=== PATIENT | female | born 1960 | race African-American/Black ===

== ENCOUNTER 2020-11-14 17:24 | Inpatient (IN) | payer OTHER ==
[2020-11-14] MEDS ORDERED: ACETAMINOPHEN 1000 MG/100 ML VIAL (NON FORMULARY) IVPB ONE (18:07)
[2020-11-14] MEDS ORDERED: SODIUM CHLORIDE 1,000 ML IV STA ×2 (18:07→20:36)
[2020-11-14] MEDS ORDERED: ACETAMINOPHEN INJECTION 100 ML IVPB ONE (18:19)
[2020-11-14 19:13] LABS: BASO % 0.3 % (0-2.0); EOS % 0.6 % (0-4.5); HEMATOCRIT 40.1 % (32.4-45.2); HEMOGLOBIN 13.2 GM/dL (10.7-15.3); MCH 26.7 pg (25.7-33.7); MCHC 32.9 g/dl (32.0-36.0); MEAN CELL VOLUME 81.3 fl (80-96); MEAN PLT VOLUME 10.5 fl (7.5-11.1); NEUT % 96.1 % (42.8-82.8); PLATELET COUNT 232 K/MM3 (134-434); RBC 4.93 M/mm3 (3.60-5.2); RDW 14.7 % (11.6-15.6); WHITE BLOOD COUNT 9.4 K/mm3 (4.0-10.0)
[2020-11-14 19:17] LABS: EPI CELLS 14 /uL (0-25.1); HYALINE CASTS 1 /uL (0-3.1); URINE APPEARANCE CLEAR; URINE BACTERIA 104 /uL (0-1359); URINE BILIRUBIN NEGATIVE (NEGATIVE); URINE COLOR DK YELLOW; URINE GLUCOSE (UA) NEGATIVE (NEGATIVE); URINE KETONE TRACE (NEGATIVE); URINE LEUK ESTERASE NEGATIVE (NEGATIVE); URINE NITRITE NEGATIVE (NEGATIVE); URINE PROTEIN 2+ (NEGATIVE); URINE RBC 32 /uL (0-23.9); URINE WBC 6 /uL (0-25.8)
[2020-11-14 19:19] LABS: VENOUS BASE EXCESS 2.2 mmol/L (-2-2); VENOUS O2 SATURATION 58.9 % (70-80); VENOUS PCO2 42.8 mmHg (38-52); VENOUS PH 7.418 (7.310-7.410)
[2020-11-14 19:24] LABS: INR 1.02 (0.83-1.09); PROTHROMBIN TIME (PATIENT) 12.5 SEC (9.7-13.0)
[2020-11-14 19:27] LABS: ACTIVATED PTT 24.5 SECONDS (25.2-36.5)
[2020-11-14 19:32] LABS: CHLORIDE 102 mmol/L (98-107); SODIUM 138 mmol/L (136-145)
[2020-11-14 19:36] LABS: ALBUMIN 3.9 g/dl (3.4-5.0); ANION GAP 9 MMOL/L (8-16); CALCIUM 9.5 mg/dL (8.5-10.1); CO2 27 mmol/L (21-32)
[2020-11-14 19:37] LABS: BLOOD UREA NITROGEN 25.3 mg/dL (7-18); GLUCOSE,RANDOM 194 mg/dL (74-106)
[2020-11-14 19:41] LABS: BILIRUBIN,TOTAL 0.8 mg/dL (0.2-1); CREATININE 1.2 mg/dL (0.55-1.3); SGOT/AST 59 U/L (15-37); SGPT/ALT 32 U/L (13-61); TOT PROT 7.9 g/dl (6.4-8.2)
[2020-11-14 19:43] LABS: ALK PHOS 101 U/L (45-117)
[2020-11-14 19:50] LABS: LACTIC ACID 2.8 mmol/L (0.4-2.0)
[2020-11-14] MEDS ORDERED: PIPERACILLIN/TAZOB 4.5 GM 4.5 GM in DEXTROSE 5%-WATER 100 ML IVPB ONE (20:08)
[2020-11-14 20:26] LABS: ANISOCYTOSIS 1+; MACROCYTOSIS 0; PLATELET ESTIMATE NORMAL
[2020-11-14] MEDS ORDERED: VANCOMYCIN 1 GM in D5W (PRE-DOCKED) 1,000 MG/250 ML IVPB ONE (22:18)
[2020-11-14] MEDS ORDERED: VANCOMYCIN 1 GRAM (PRE-DOCKED) 1,000 MG/250 ML BAG IVPB ONE (22:48)
[2020-11-14] MEDS ORDERED: PIPERACILLIN/TAZOB 4.5 GM 4.5 GM/100 ML BAG IVPB ONE (22:48)
[2020-11-15] MEDS ORDERED: ACETAMINOPHEN 325 MG TABLET (FP) ONE (02:40)
[2020-11-15] MEDS ORDERED: ACETAMINOPHEN 325 MG TABLET (FP) PO ONE (02:45)
[2020-11-15 04:20] VITALS: BMI 34.3
[2020-11-15] MEDS: INSULIN SLIDING SCALE (NOVOLOG) 1 VIAL SQ SCH ×4 (06:49→21:23)
[2020-11-15 07:36] LABS: HEMOGLOBIN 12.2 GM/dL (10.7-15.3); LYMPH % 12.8 % (8-40); MCH 26.8 pg (25.7-33.7); MCHC 32.9 g/dl (32.0-36.0); MEAN CELL VOLUME 81.4 fl (80-96); MEAN PLT VOLUME 9.4 fl (7.5-11.1); MONO % 3.2 % (3.8-10.2); PLATELET COUNT 176 K/MM3 (134-434); RBC 4.55 M/mm3 (3.60-5.2); RDW 14.7 % (11.6-15.6); WHITE BLOOD COUNT 4.7 K/mm3 (4.0-10.0)
[2020-11-15 07:50] LABS: INR 1.13 (0.83-1.09); PROTHROMBIN TIME (PATIENT) 13.8 SEC (9.7-13.0)
[2020-11-15 07:53] LABS: ALBUMIN 3.1 g/dl (3.4-5.0); CALCIUM 8.5 mg/dL (8.5-10.1); MAGNESIUM 1.8 mg/dL (1.8-2.4)
[2020-11-15 07:56] LABS: CREATININE 0.8 mg/dL (0.55-1.3); PHOSPHOROUS 2.7 mg/dL (2.5-4.9)
[2020-11-15 07:57] LABS: BILIRUBIN,TOTAL 1.2 mg/dL (0.2-1); TOT PROT 6.7 g/dl (6.4-8.2)
[2020-11-15] MEDS ORDERED: PT OWN MED DRAWER 7, Y5N ONE ×2 (10:14→21:17)
[2020-11-15] MEDS: EZETIMIBE 10 MG TABLET (FP) PO SCH (10:19)
[2020-11-15] MEDS: PANTOPRAZOLE 40 MG TABLET PO SCH (10:19)
[2020-11-15] MEDS: HYDROCHLOROTHIAZIDE 25 MG TABLET (FP) PO SCH (10:20)
[2020-11-15] MEDS: DOCUSATE SODIUM 100 MG CAPSULE (FP) PO SCH ×2 (10:20→21:22)
[2020-11-15] MEDS: ENOXAPARIN NA (PORCINE) 40 MG/0.4 ML DISP.SYRIN SQ SCH (10:20)
[2020-11-15] MEDS ORDERED: POTASSIUM CHLORIDE TABS 20 MEQ TABLET.ER (FP) PO ONE (13:30)
[2020-11-15] MEDS ORDERED: amLODIPine BESYLATE 5 MG TABLET (FP) PO SCH (19:45)
[2020-11-15] MEDS ORDERED: INSULIN (NOVOLOG) ASPART 100 UNITS/ML 10ML VIAL ONE (21:18)
[2020-11-15] MEDS: SENNOSIDES 8.6MG TABLET (FP) PO SCH (21:22)
[2020-11-15] MEDS ORDERED: ROSUVASTATIN CA 40 MG TABLET PO SCH (22:00)
[2020-11-16] MEDS ORDERED: ACETAMINOPHEN 325 MG TABLET (FP) PO ONE (01:15)
[2020-11-16] MEDS: INSULIN SLIDING SCALE (NOVOLOG) 1 VIAL SQ SCH ×4 (06:06→21:05)
[2020-11-16 08:00] LABS: BLOOD UREA NITROGEN 14.2 mg/dL (7-18); CALCIUM 9.4 mg/dL (8.5-10.1)
[2020-11-16 08:03] LABS: CREATININE 0.8 mg/dL (0.55-1.3)
[2020-11-16] MEDS ORDERED: PT OWN MED DRAWER 7, Y5N ONE (09:27)
[2020-11-16] MEDS: ENOXAPARIN NA (PORCINE) 40 MG/0.4 ML DISP.SYRIN SQ SCH (09:29)
[2020-11-16] MEDS: PANTOPRAZOLE 40 MG TABLET PO SCH (09:30)
[2020-11-16] MEDS: EZETIMIBE 10 MG TABLET (FP) PO SCH (09:30)
[2020-11-16] MEDS: DOCUSATE SODIUM 100 MG CAPSULE (FP) PO SCH ×2 (09:30→21:05)
[2020-11-16] MEDS: HYDROCHLOROTHIAZIDE 25 MG TABLET (FP) PO SCH (09:30)
[2020-11-16] MEDS ORDERED: VANCOMYCIN 1 GM in D5W (PRE-DOCKED) 1,000 MG/250 ML IVPB ONE (10:30)
[2020-11-16] MEDS: IBUPROFEN 200 MG TABLET PO PRN (16:48)
[2020-11-16] MEDS ORDERED: INSULIN (NOVOLOG) ASPART 100 UNITS/ML 10ML VIAL ONE (20:55)
[2020-11-16] MEDS: ROSUVASTATIN CA 20 MG TABLET (FP) PO SCH (21:04)
[2020-11-16] MEDS: SENNOSIDES 8.6MG TABLET (FP) PO SCH (21:05)
[2020-11-17] MEDS: INSULIN SLIDING SCALE (NOVOLOG) 1 VIAL SQ SCH ×4 (06:15→21:41)
[2020-11-17] MEDS: ENOXAPARIN NA (PORCINE) 40 MG/0.4 ML DISP.SYRIN SQ SCH (09:48)
[2020-11-17] MEDS: HYDROCHLOROTHIAZIDE 25 MG TABLET (FP) PO SCH (09:49)
[2020-11-17] MEDS: PANTOPRAZOLE 40 MG TABLET PO SCH (09:49)
[2020-11-17] MEDS: DOCUSATE SODIUM 100 MG CAPSULE (FP) PO SCH ×2 (09:49→21:44)
[2020-11-17] MEDS ORDERED: PT OWN MED DRAWER 7, Y5N ONE (09:53)
[2020-11-17] MEDS: EZETIMIBE 10 MG TABLET (FP) PO SCH (09:55)
[2020-11-17] MEDS: amLODIPine BESYLATE 5 MG TABLET (FP) PO SCH (14:00)
[2020-11-17] MEDS: INSULIN (LEVEMIR) 100 UNITS/ML UNITS SQ SCH (21:43)
[2020-11-17] MEDS: ROSUVASTATIN CA 20 MG TABLET (FP) PO SCH (21:44)
[2020-11-17] MEDS: SENNOSIDES 8.6MG TABLET (FP) PO SCH (21:44)
[2020-11-18] MEDS: INSULIN SLIDING SCALE (NOVOLOG) 1 VIAL SQ SCH ×4 (06:19→21:14)
[2020-11-18] MEDS ORDERED: INSULIN (LEVEMIR) 100 UNITS/ML UNITS SQ ONE (06:48)
[2020-11-18] MEDS ORDERED: INSULIN (NOVOLOG) ASPART 100 UNITS/ML 10ML VIAL ONE ×3 (06:48→16:32)
[2020-11-18] MEDS ORDERED: PT OWN MED DRAWER 7, Y5N ONE (08:41)
[2020-11-18] MEDS: EZETIMIBE 10 MG TABLET (FP) PO SCH (09:03)
[2020-11-18] MEDS: ENOXAPARIN NA (PORCINE) 40 MG/0.4 ML DISP.SYRIN SQ SCH (09:03)
[2020-11-18] MEDS: DOCUSATE SODIUM 100 MG CAPSULE (FP) PO SCH ×2 (09:03→21:13)
[2020-11-18] MEDS: PANTOPRAZOLE 40 MG TABLET PO SCH (09:03)
[2020-11-18] MEDS: amLODIPine BESYLATE 5 MG TABLET (FP) PO SCH (09:04)
[2020-11-18] MEDS: HYDROCHLOROTHIAZIDE 25 MG TABLET (FP) PO SCH (09:04)
[2020-11-18] MEDS: MELATONIN 5 MG TABLETS PO PRN (21:14)
[2020-11-18] MEDS: SENNOSIDES 8.6MG TABLET (FP) PO SCH (21:14)
[2020-11-18] MEDS: ROSUVASTATIN CA 20 MG TABLET (FP) PO SCH (21:14)
[2020-11-18] MEDS: INSULIN (LEVEMIR) 100 UNITS/ML UNITS SQ SCH (21:15)
[2020-11-19] MEDS: INSULIN SLIDING SCALE (NOVOLOG) 1 VIAL SQ SCH ×4 (06:02→22:18)
[2020-11-19] MEDS ORDERED: INSULIN (LEVEMIR) 100 UNITS/ML UNITS SQ ONE (06:22)
[2020-11-19] MEDS ORDERED: INSULIN (NOVOLOG) ASPART 100 UNITS/ML 10ML VIAL ONE ×2 (06:22→09:12)
[2020-11-19] MEDS: amLODIPine BESYLATE 5 MG TABLET (FP) PO SCH (09:38)
[2020-11-19] MEDS: HYDROCHLOROTHIAZIDE 25 MG TABLET (FP) PO SCH (09:38)
[2020-11-19] MEDS: PANTOPRAZOLE 40 MG TABLET PO SCH (09:38)
[2020-11-19] MEDS: DOCUSATE SODIUM 100 MG CAPSULE (FP) PO SCH ×2 (09:38→22:01)
[2020-11-19] MEDS: EZETIMIBE 10 MG TABLET (FP) PO SCH (09:38)
[2020-11-19] MEDS: ENOXAPARIN NA (PORCINE) 40 MG/0.4 ML DISP.SYRIN SQ SCH (09:39)
[2020-11-19] MEDS ORDERED: INSULIN (LEVEMIR) 100 UNITS/ML UNITS SQ SCH (11:26)
[2020-11-19] MEDS: SENNOSIDES 8.6MG TABLET (FP) PO SCH (22:01)
[2020-11-19] MEDS: ROSUVASTATIN CA 20 MG TABLET (FP) PO SCH (22:01)
[2020-11-19] MEDS: IBUPROFEN 200 MG TABLET PO PRN (22:08)
[2020-11-20] MEDS: INSULIN SLIDING SCALE (NOVOLOG) 1 VIAL SQ SCH ×4 (06:44→21:56)
[2020-11-20] MEDS: HYDROCHLOROTHIAZIDE 25 MG TABLET (FP) PO SCH (09:41)
[2020-11-20] MEDS: amLODIPine BESYLATE 5 MG TABLET (FP) PO SCH (09:42)
[2020-11-20] MEDS: ENOXAPARIN NA (PORCINE) 40 MG/0.4 ML DISP.SYRIN SQ SCH (09:43)
[2020-11-20] MEDS: DOCUSATE SODIUM 100 MG CAPSULE (FP) PO SCH ×2 (09:43→21:57)
[2020-11-20] MEDS: PANTOPRAZOLE 40 MG TABLET PO SCH (09:43)
[2020-11-20] MEDS: EZETIMIBE 10 MG TABLET (FP) PO SCH (09:43)
[2020-11-20] MEDS ORDERED: INSULIN (NOVOLOG) ASPART 100 UNITS/ML 10ML VIAL ONE (11:32)
[2020-11-20] MEDS: INSULIN (LEVEMIR) 100 UNITS/ML UNITS SQ SCH (21:56)
[2020-11-20] MEDS: SENNOSIDES 8.6MG TABLET (FP) PO SCH (21:57)
[2020-11-20] MEDS: ROSUVASTATIN CA 20 MG TABLET (FP) PO SCH (21:57)
[2020-11-20] MEDS: ACETAMINOPHEN 325 MG TABLET (FP) PO PRN (22:24)
[2020-11-20] MEDS: MELATONIN 5 MG TABLETS PO PRN (22:24)
[2020-11-21] MEDS: INSULIN SLIDING SCALE (NOVOLOG) 1 VIAL SQ SCH ×4 (06:08→21:24)
[2020-11-21 07:56] LABS: HEMATOCRIT 36.4 % (32.4-45.2); HEMOGLOBIN 12.4 GM/dL (10.7-15.3); MCH 27.1 pg (25.7-33.7); MEAN CELL VOLUME 79.9 fl (80-96); MEAN PLT VOLUME 9.7 fl (7.5-11.1); PLATELET COUNT 259 K/MM3 (134-434); RBC 4.56 M/mm3 (3.60-5.2); RDW 15.1 % (11.6-15.6); WHITE BLOOD COUNT 6.9 K/mm3 (4.0-10.0)
[2020-11-21 08:51] LABS: BILIRUBIN,TOTAL 0.5 mg/dL (0.2-1)
[2020-11-21 08:52] LABS: BLOOD UREA NITROGEN 13.7 mg/dL (7-18)
[2020-11-21 08:53] LABS: ALBUMIN 3.6 g/dl (3.4-5.0); CALCIUM 8.7 mg/dL (8.5-10.1)
[2020-11-21 08:54] LABS: CREATININE 0.8 mg/dL (0.55-1.3)
[2020-11-21] MEDS: PANTOPRAZOLE 40 MG TABLET PO SCH (09:27)
[2020-11-21] MEDS: ENOXAPARIN NA (PORCINE) 40 MG/0.4 ML DISP.SYRIN SQ SCH (09:27)
[2020-11-21] MEDS: DOCUSATE SODIUM 100 MG CAPSULE (FP) PO SCH ×2 (09:27→21:25)
[2020-11-21] MEDS: HYDROCHLOROTHIAZIDE 25 MG TABLET (FP) PO SCH (09:27)
[2020-11-21] MEDS: amLODIPine BESYLATE 5 MG TABLET (FP) PO SCH (09:27)
[2020-11-21] MEDS: EZETIMIBE 10 MG TABLET (FP) PO SCH (11:02)
[2020-11-21] MEDS ORDERED: INSULIN (NOVOLOG) ASPART 100 UNITS/ML 10ML VIAL ONE ×2 (11:15→20:50)
[2020-11-21] MEDS: SENNOSIDES 8.6MG TABLET (FP) PO SCH (21:25)
[2020-11-21] MEDS: ROSUVASTATIN CA 20 MG TABLET (FP) PO SCH (21:25)
[2020-11-21] MEDS: INSULIN (LEVEMIR) 100 UNITS/ML UNITS SQ SCH (21:25)
[2020-11-22] MEDS: INSULIN SLIDING SCALE (NOVOLOG) 1 VIAL SQ SCH ×4 (06:00→21:14)
[2020-11-22] MEDS ORDERED: DEXTROSE 5%-NORMAL SALINE 1,000 ML IV SCH (08:00)
[2020-11-22] MEDS: HYDROCHLOROTHIAZIDE 25 MG TABLET (FP) PO SCH (09:30)
[2020-11-22] MEDS: ACETAMINOPHEN 325 MG TABLET (FP) PO PRN ×2 (09:31→22:18)
[2020-11-22] MEDS: PANTOPRAZOLE 40 MG TABLET PO SCH (09:32)
[2020-11-22] MEDS: DOCUSATE SODIUM 100 MG CAPSULE (FP) PO SCH ×2 (09:32→21:08)
[2020-11-22] MEDS: amLODIPine BESYLATE 10 MG TABLET (FP) PO SCH (09:32)
[2020-11-22] MEDS ORDERED: INSULIN (LEVEMIR) 100 UNITS/ML UNITS SQ SCH (11:56)
[2020-11-22] MEDS: Insulin (LOG) Aspart 100 UNITS/ML VIAL SQ SCH ×2 (12:38→13:00)
[2020-11-22] MEDS: EZETIMIBE 10 MG TABLET (FP) PO SCH (14:24)
[2020-11-22] MEDS ORDERED: INSULIN (NOVOLOG) ASPART 100 UNITS/ML 10ML VIAL SQ SCH (16:30)
[2020-11-22] MEDS ORDERED: Insulin (LOG) Aspart 100 UNITS/ML VIAL SQ SCH (16:30)
[2020-11-22] MEDS: ROSUVASTATIN CA 20 MG TABLET (FP) PO SCH (21:08)
[2020-11-22] MEDS: SENNOSIDES 8.6MG TABLET (FP) PO SCH (21:09)
[2020-11-23] MEDS: INSULIN SLIDING SCALE (NOVOLOG) 1 VIAL SQ SCH ×4 (06:20→21:08)
[2020-11-23] MEDS ORDERED: DEXTROSE 5%-NORMAL SALINE 1,000 ML IV SCH (08:00)
[2020-11-23] MEDS ORDERED: HEPARIN NA (PORCINE) 5,000 UNITS/ML 1ML VIAL ONE (08:08)
[2020-11-23] MEDS ORDERED: LIDOCAINE HCL 1%, 10 MG/ML (20ML VIAL) ONE (08:08)
[2020-11-23] MEDS ORDERED: MIDAZOLAM HCL 2 MG/2 ML SINGLE DOSE VIAL ONE ×2 (09:22)
[2020-11-23] MEDS ORDERED: ceFAZolin SODIUM 1 GM VIAL IVPB ONE (09:30)
[2020-11-23] MEDS: DOCUSATE SODIUM 100 MG CAPSULE (FP) PO SCH ×2 (09:36→21:08)
[2020-11-23] MEDS ORDERED: ceFAZolin SODIUM 1 GM VIAL ONE (09:40)
[2020-11-23] MEDS ORDERED: METOPROLOL TARTRATE 5 MG/5 ML VIAL ONE (09:40)
[2020-11-23] MEDS ORDERED: IOVERSOL 320 MG/ML ML IV ONE (10:10)
[2020-11-23] MEDS ORDERED: LIDOCAINE HCL 1%, 10 MG/ML (20ML VIAL) SQ ONE (10:10)
[2020-11-23] MEDS ORDERED: ONDANSETRON 4 MG/2 ML VIAL IVPUSH PRN ×2 (10:25→10:58)
[2020-11-23] MEDS ORDERED: LACTATED RINGERS SOLUTION 1,000 ML IV SCH (10:30)
[2020-11-23] MEDS ORDERED: IBUPROFEN 200 MG TABLET PO PRN (10:58)
[2020-11-23] MEDS ORDERED: MELATONIN 5 MG TABLETS PO PRN (10:58)
[2020-11-23] MEDS ORDERED: ACETAMINOPHEN 325 MG TABLET (FP) PO PRN (10:58)
[2020-11-23] MEDS: amLODIPine BESYLATE 10 MG TABLET (FP) PO SCH (12:19)
[2020-11-23] MEDS: PANTOPRAZOLE 40 MG TABLET PO SCH (12:19)
[2020-11-23] MEDS: HYDROCHLOROTHIAZIDE 25 MG TABLET (FP) PO SCH (12:19)
[2020-11-23] MEDS: EZETIMIBE 10 MG TABLET (FP) PO SCH (12:19)
[2020-11-23] MEDS: LACTATED RINGERS SOLUTION 1,000 ML IV SCH (17:19)
[2020-11-23] MEDS: DEXTROSE 5%-NORMAL SALINE 1,000 ML IV SCH (17:19)
[2020-11-23] MEDS ORDERED: ROSUVASTATIN CA 20 MG TABLET (FP) PO SCH (22:00)
[2020-11-23] MEDS ORDERED: SENNOSIDES 8.6MG TABLET (FP) PO SCH (22:00)
[2020-11-23] MEDS ORDERED: INSULIN (LEVEMIR) 100 UNITS/ML UNITS SQ SCH (22:00)
[2020-11-24] MEDS: INSULIN SLIDING SCALE (NOVOLOG) 1 VIAL SQ SCH ×3 (06:34→11:59)
[2020-11-24] MEDS ORDERED: INSULIN (NOVOLOG) ASPART 100 UNITS/ML 10ML VIAL ONE (09:00)
[2020-11-24] MEDS ORDERED: PT OWN MED DRAWER 7, Y5N ONE (09:00)
[2020-11-24] MEDS: DOCUSATE SODIUM 100 MG CAPSULE (FP) PO SCH (09:09)
[2020-11-24] MEDS ORDERED: LOSARTAN POTASSIUM 25 MG TABLET PO SCH (10:00)
[2020-11-24] MEDS ORDERED: PANTOPRAZOLE 40 MG TABLET PO SCH (10:00)
[2020-11-24] MEDS ORDERED: EZETIMIBE 10 MG TABLET (FP) PO SCH (10:00)
[2020-11-24] MEDS ORDERED: amLODIPine BESYLATE 10 MG TABLET (FP) PO SCH (10:00)
[2020-11-24] MEDS ORDERED: HYDROCHLOROTHIAZIDE 25 MG TABLET (FP) PO SCH (10:00)
[2020-11-24] MEDS: LACTATED RINGERS SOLUTION 1,000 ML IV SCH (11:59)
[2020-11-24] MEDS: DEXTROSE 5%-NORMAL SALINE 1,000 ML IV SCH (11:59)
[2020-11-24 13:50] VITALS: BP 135/70; PULSE 66; TEMP 98.5
== END 2020-11-24 15:14 | disposition home or self-care (01) | DRG 300 ==
LOC: JER 17:24 → JERBED 21:31 → J7W 11-15 03:54
PROVIDERS: ADMIT Internal Medicine; ATTEND Internal Medicine
PROC: B40DYZZ Plain Radiography of Aorta and Bilateral Lower Extremity Arteries using Other Contrast (ICD-10-PCS; 2020-11-23)
PROC: B40FYZZ Plain Radiography of Right Lower Extremity Arteries using Other Contrast (ICD-10-PCS; principal; 2020-11-23 09:00)
DX: E11.52 Type 2 diabetes mellitus with diabetic peripheral angiopathy with gangrene (principal); I69.351 Hemiplegia and hemiparesis following cerebral infarction affecting right dominant side; R78.81 Bacteremia; I70.261 Atherosclerosis of native arteries of extremities with gangrene, right leg; I10 Essential (primary) hypertension; E78.5 Hyperlipidemia, unspecified; Z79.4 Long term (current) use of insulin
CPT/HCPCS: 36415; 71045-TC-FY; 73630-TC-RT-FY; 73700-TC-RT; 73718-TC-RT; 75635-TC; 76000-TC-FY; 80048; 80053; 81003; 82550; 82553; 82728; 82803; 82962; 83036; 83605; 83735; 84100; 84436; 84443; 84484; 85025; 85027; 85610; 85730; 86140; 86850; 86900; 86901; 87040; 87086; 87804; 93005; 93010; 93306-TC; 94760; 99285-25; C9803; J0131; J1644; Q9967; U0003; U0005

== ENCOUNTER 2021-04-11 04:30 | Inpatient (IN) | payer OTHER ==
[2021-04-09 15:55] VITALS: BMI 36.6
[2021-04-11] MEDS ORDERED: ACETAMINOPHEN INJECTION 100 ML IVPB ONE (06:50)
[2021-04-11] MEDS ORDERED: DEXMEDETOMIDINE HCL 200 MCG/2 ML IVPB ONE (06:50)
[2021-04-11] MEDS ORDERED: ceFAZolin SODIUM 1 GM VIAL ONE ×2 (07:24→08:30)
[2021-04-11] MEDS ORDERED: CEFAZOLIN 2 GM/D5W 2 GM/50 ML ML IVPB ONE (08:00)
[2021-04-11] MEDS ORDERED: ETOMIDATE 20 MG/10 ML AMPUL IVPUSH ONE (08:30)
[2021-04-11] MEDS ORDERED: MIDAZOLAM HCL 2 MG/2 ML SINGLE DOSE VIAL ONE (08:32)
[2021-04-11] MEDS ORDERED: fentaNYL CITRATE 250 MCG/5 ML VIAL ONE (08:32)
[2021-04-11] MEDS ORDERED: KETAMINE HCL 200 MG/20 ML VIAL ONE (08:32)
[2021-04-11] MEDS ORDERED: ROCURONIUM BROMIDE 50 MG/5 ML SYRINGE ONE (09:10)
[2021-04-11] MEDS ORDERED: HEPARIN NA (PORCINE) 5,000 UNITS/ML 1ML VIAL ONE ×3 (09:50→12:10)
[2021-04-11] MEDS ORDERED: ceFAZolin SODIUM 1 GM VIAL IVPB ONE (10:30)
[2021-04-11] MEDS ORDERED: NEOSTIGMINE METHYLSULFATE 0.5 MG/ML - 10 ML MDV ONE (10:39)
[2021-04-11] MEDS ORDERED: POVIDONE-IODINE OINTMENT 10% - 28.4 GM TUBE ONE (13:33)
[2021-04-11] MEDS ORDERED: ONDANSETRON 4 MG/2 ML VIAL IVPUSH PRN (14:10)
[2021-04-11] MEDS: morphine SULFATE 4 MG/ML VIAL IVPUSH PRN ×2 (16:21→21:28)
[2021-04-11] MEDS ORDERED: ACETAMINOPHEN 1000 MG/100 ML VIAL (NON FORMULARY) IVPB PRN (17:18)
[2021-04-11] MEDS: APIXABAN 5 MG TABLET PO SCH (21:27)
[2021-04-11] MEDS: MUPIROCIN 2% TOPICAL OINTMENT FOR DECOLONIZATION NS SCH (21:28)
[2021-04-11] MEDS ORDERED: ROSUVASTATIN CA 40 MG TABLET PO SCH (22:00)
[2021-04-11] MEDS ORDERED: CHLORHEXIDINE GLUCONATE 4% CLEANSER FOR DECOLONIZATION TP SCH (22:00)
[2021-04-11] MEDS ORDERED: PATIENT'S OWN MEDICATION (NON-FORMULARY) (Insulin Lispro [Humalog] 100 UNIT/ML Vial) SQ SCH (22:00)
[2021-04-12] MEDS ORDERED: MORPHINE SULFATE 2 MG/ML VIAL IVPUSH ONE (01:00)
[2021-04-12] MEDS: morphine SULFATE 4 MG/ML VIAL IVPUSH PRN ×2 (06:09→10:04)
[2021-04-12] MEDS ORDERED: INSULIN (NOVOLOG) ASPART 100 UNITS/ML 10ML VIAL SQ SCH ×2 (07:00→12:00)
[2021-04-12 07:18] LABS: BASO % 0.5 % (0-2.0); EOS % 2.1 % (0-4.5); HEMATOCRIT 32.3 % (32.4-45.2); HEMOGLOBIN 11.1 GM/dL (10.7-15.3); LYMPH % 14.2 % (8-40); MCH 27.5 pg (25.7-33.7); MCHC 34.2 g/dl (32.0-36.0); MEAN CELL VOLUME 80.4 fl (80-96); MEAN PLT VOLUME 9.2 fl (7.5-11.1); MONO % 9.4 % (3.8-10.2); NEUT % 73.8 % (42.8-82.8); PLATELET COUNT 228 10^3/uL (134-434); RBC 4.02 M/mm3 (3.60-5.2); RDW 14.8 % (11.6-15.6); WHITE BLOOD COUNT 9.7 K/mm3 (4.0-10.0)
[2021-04-12] MEDS: INSULIN SLIDING SCALE (NOVOLOG) 1 VIAL SQ SCH ×4 (07:28→21:40)
[2021-04-12 07:35] LABS: ALBUMIN 3.3 g/dl (3.4-5.0); CALCIUM 8.4 mg/dL (8.5-10.1)
[2021-04-12 07:36] LABS: MAGNESIUM 1.7 mg/dL (1.8-2.4)
[2021-04-12 07:39] LABS: CREATININE 0.9 mg/dL (0.55-1.3); PHOSPHOROUS 2.8 mg/dL (2.5-4.9)
[2021-04-12 07:40] LABS: BILIRUBIN,TOTAL 0.9 mg/dL (0.2-1); TOT PROT 6.9 g/dl (6.4-8.2)
[2021-04-12] MEDS ORDERED: MAGNESIUM SULF 50% (8.12 MEQ/2 ML-1 GM VIAL) IVPB ONE (08:09)
[2021-04-12] MEDS: APIXABAN 5 MG TABLET PO SCH ×2 (09:53→21:38)
[2021-04-12] MEDS ORDERED: PT OWN MED DRAWER 7, Y5N ONE (09:59)
[2021-04-12] MEDS ORDERED: ASPIRIN 325 MG TABLET PO SCH (10:00)
[2021-04-12] MEDS ORDERED: EZETIMIBE 10 MG TABLET (FP) PO SCH (10:00)
[2021-04-12] MEDS ORDERED: amLODIPine BESYLATE 10 MG TABLET (FP) PO SCH (10:00)
[2021-04-12] MEDS ORDERED: LOSARTAN POTASSIUM 25 MG TABLET PO SCH (10:00)
[2021-04-12] MEDS ORDERED: DOCUSATE SODIUM 100 MG CAPSULE (FP) PO SCH (10:15)
[2021-04-12] MEDS ORDERED: PANTOPRAZOLE SODIUM 40 MG VIAL IVPUSH SCH (10:15)
[2021-04-12] MEDS: PANTOPRAZOLE 40 MG TABLET PO SCH (11:26)
[2021-04-12] MEDS: MUPIROCIN 2% TOPICAL OINTMENT FOR DECOLONIZATION NS SCH (13:16)
[2021-04-12] MEDS ORDERED: morphine SULFATE 4 MG/ML VIAL IVPUSH PRN (14:37)
[2021-04-12] MEDS ORDERED: ACETAMINOPHEN 1000 MG/100 ML VIAL (NON FORMULARY) IVPB PRN (14:37)
[2021-04-12] MEDS ORDERED: CEFAZOLIN 2 GM/D5W 2 GM/50 ML ML IVPB ONE (15:45)
[2021-04-12] MEDS: DOCUSATE SODIUM 100 MG CAPSULE (FP) PO SCH (21:38)
[2021-04-12] MEDS ORDERED: ROSUVASTATIN CA 40 MG TABLET PO SCH (22:00)
[2021-04-12] MEDS: ROSUVASTATIN CA 20 MG TABLET (FP) PO SCH (22:05)
[2021-04-13] MEDS: INSULIN SLIDING SCALE (NOVOLOG) 1 VIAL SQ SCH ×4 (06:14→21:06)
[2021-04-13] MEDS: DOCUSATE SODIUM 100 MG CAPSULE (FP) PO SCH ×2 (10:07→21:04)
[2021-04-13] MEDS: ASPIRIN 325 MG TABLET PO SCH (10:07)
[2021-04-13] MEDS: PANTOPRAZOLE 40 MG TABLET PO SCH (10:07)
[2021-04-13] MEDS: APIXABAN 5 MG TABLET PO SCH ×2 (10:07→21:04)
[2021-04-13] MEDS: amLODIPine BESYLATE 10 MG TABLET (FP) PO SCH (10:08)
[2021-04-13] MEDS: LOSARTAN POTASSIUM 25 MG TABLET PO SCH (10:08)
[2021-04-13] MEDS: EZETIMIBE 10 MG TABLET (FP) PO SCH (10:09)
[2021-04-13] MEDS: ACETAMINOPHEN WITH CODEINE 300MG/30MG TABLET PO PRN ×2 (11:52→21:04)
[2021-04-13] MEDS ORDERED: INSULIN (NOVOLOG) ASPART 100 UNITS/ML 10ML VIAL ONE (20:59)
[2021-04-13] MEDS: ROSUVASTATIN CA 20 MG TABLET (FP) PO SCH (21:04)
[2021-04-14] MEDS: INSULIN SLIDING SCALE (NOVOLOG) 1 VIAL SQ SCH ×4 (06:13→21:50)
[2021-04-14] MEDS: PANTOPRAZOLE 40 MG TABLET PO SCH (09:20)
[2021-04-14] MEDS: amLODIPine BESYLATE 10 MG TABLET (FP) PO SCH (09:20)
[2021-04-14] MEDS: LOSARTAN POTASSIUM 25 MG TABLET PO SCH (09:20)
[2021-04-14] MEDS: APIXABAN 5 MG TABLET PO SCH ×2 (09:20→21:49)
[2021-04-14] MEDS: EZETIMIBE 10 MG TABLET (FP) PO SCH (09:20)
[2021-04-14] MEDS: ASPIRIN 325 MG TABLET PO SCH (09:20)
[2021-04-14] MEDS: DOCUSATE SODIUM 100 MG CAPSULE (FP) PO SCH ×2 (09:20→21:49)
[2021-04-14] MEDS: ACETAMINOPHEN WITH CODEINE 300MG/30MG TABLET PO PRN ×2 (10:18→21:50)
[2021-04-14] MEDS ORDERED: INSULIN (NOVOLOG) ASPART 100 UNITS/ML 10ML VIAL ONE (21:44)
[2021-04-14] MEDS: ROSUVASTATIN CA 20 MG TABLET (FP) PO SCH (21:49)
[2021-04-15] MEDS: ACETAMINOPHEN WITH CODEINE 300MG/30MG TABLET PO PRN ×3 (06:40→22:00)
[2021-04-15] MEDS: INSULIN SLIDING SCALE (NOVOLOG) 1 VIAL SQ SCH ×4 (07:03→22:00)
[2021-04-15] MEDS: APIXABAN 5 MG TABLET PO SCH ×2 (10:46→22:00)
[2021-04-15] MEDS: ASPIRIN 325 MG TABLET PO SCH (10:46)
[2021-04-15] MEDS: LOSARTAN POTASSIUM 25 MG TABLET PO SCH (10:47)
[2021-04-15] MEDS: DOCUSATE SODIUM 100 MG CAPSULE (FP) PO SCH ×2 (10:47→21:59)
[2021-04-15] MEDS: amLODIPine BESYLATE 10 MG TABLET (FP) PO SCH (10:47)
[2021-04-15] MEDS: PANTOPRAZOLE 40 MG TABLET PO SCH (10:47)
[2021-04-15] MEDS: EZETIMIBE 10 MG TABLET (FP) PO SCH (10:48)
[2021-04-15 11:28] LABS: BASO % 0.8 % (0-2.0); EOS % 2.7 % (0-4.5); HEMATOCRIT 32.4 % (32.4-45.2); LYMPH % 22.1 % (8-40); MCH 27.2 pg (25.7-33.7); MCHC 33.8 g/dl (32.0-36.0); MEAN CELL VOLUME 80.6 fl (80-96); MEAN PLT VOLUME 9.1 fl (7.5-11.1); MONO % 8.5 % (3.8-10.2); NEUT % 65.9 % (42.8-82.8); PLATELET COUNT 307 10^3/uL (134-434); RBC 4.02 M/mm3 (3.60-5.2); RDW 14.5 % (11.6-15.6); WHITE BLOOD COUNT 7.9 K/mm3 (4.0-10.0)
[2021-04-15 11:49] LABS: ALBUMIN 2.9 g/dl (3.4-5.0); BLOOD UREA NITROGEN 13.9 mg/dL (7-18); CALCIUM 8.9 mg/dL (8.5-10.1)
[2021-04-15 11:52] LABS: CREATININE 0.9 mg/dL (0.55-1.3)
[2021-04-15 11:54] LABS: BILIRUBIN,TOTAL 0.9 mg/dL (0.2-1); TOT PROT 7.1 g/dl (6.4-8.2)
[2021-04-15] MEDS ORDERED: INSULIN (NOVOLOG) ASPART 100 UNITS/ML 10ML VIAL ONE (20:26)
[2021-04-15] MEDS: ROSUVASTATIN CA 20 MG TABLET (FP) PO SCH (22:01)
[2021-04-15] MEDS: INSULIN (LEVEMIR) 100 UNITS/ML UNITS SQ SCH (22:02)
[2021-04-16] MEDS: INSULIN SLIDING SCALE (NOVOLOG) 1 VIAL SQ SCH ×4 (06:14→21:03)
[2021-04-16] MEDS: ACETAMINOPHEN WITH CODEINE 300MG/30MG TABLET PO PRN ×2 (06:15→12:44)
[2021-04-16 10:06] LABS: CHOLESTEROL 82 mg/dL (50-200)
[2021-04-16 10:07] LABS: LDL CHOLESTEROL (ONLY SJRH) 40 mg/dL (5-100)
[2021-04-16 10:08] LABS: TRIGLYCERIDES 105 mg/dL (0-150)
[2021-04-16 10:10] LABS: HDL CHOLESTEROL 32 mg/dL (40-60)
[2021-04-16] MEDS: ASPIRIN 325 MG TABLET PO SCH (11:41)
[2021-04-16] MEDS: PANTOPRAZOLE 40 MG TABLET PO SCH (11:41)
[2021-04-16] MEDS: DOCUSATE SODIUM 100 MG CAPSULE (FP) PO SCH ×2 (11:41→21:02)
[2021-04-16] MEDS: APIXABAN 5 MG TABLET PO SCH ×2 (11:41→21:02)
[2021-04-16] MEDS: amLODIPine BESYLATE 10 MG TABLET (FP) PO SCH (11:41)
[2021-04-16] MEDS: LOSARTAN POTASSIUM 25 MG TABLET PO SCH (11:41)
[2021-04-16] MEDS: EZETIMIBE 10 MG TABLET (FP) PO SCH (11:42)
[2021-04-16] MEDS: POLYETHYLENE GLYCOL (HEALTHYLAX) 3350 17 GM PACKET PO SCH (15:56)
[2021-04-16] MEDS: ROSUVASTATIN CA 20 MG TABLET (FP) PO SCH (21:03)
[2021-04-16] MEDS: INSULIN (LEVEMIR) 100 UNITS/ML UNITS SQ SCH (21:04)
[2021-04-17] MEDS: ACETAMINOPHEN WITH CODEINE 300MG/30MG TABLET PO PRN ×3 (03:46→21:56)
[2021-04-17] MEDS: INSULIN SLIDING SCALE (NOVOLOG) 1 VIAL SQ SCH ×4 (06:03→22:00)
[2021-04-17] MEDS: LOSARTAN POTASSIUM 25 MG TABLET PO SCH (10:30)
[2021-04-17] MEDS: EZETIMIBE 10 MG TABLET (FP) PO SCH (10:30)
[2021-04-17] MEDS: ASPIRIN 325 MG TABLET PO SCH (10:31)
[2021-04-17] MEDS: PANTOPRAZOLE 40 MG TABLET PO SCH (10:31)
[2021-04-17] MEDS: APIXABAN 5 MG TABLET PO SCH ×2 (10:31→21:55)
[2021-04-17] MEDS: amLODIPine BESYLATE 10 MG TABLET (FP) PO SCH (10:31)
[2021-04-17] MEDS: DOCUSATE SODIUM 100 MG CAPSULE (FP) PO SCH ×2 (10:32→21:55)
[2021-04-17] MEDS: POLYETHYLENE GLYCOL (HEALTHYLAX) 3350 17 GM PACKET PO SCH (10:32)
[2021-04-17] MEDS ORDERED: INSULIN (NOVOLOG) ASPART 100 UNITS/ML 10ML VIAL ONE ×2 (11:25→19:23)
[2021-04-17] MEDS: ROSUVASTATIN CA 20 MG TABLET (FP) PO SCH (21:56)
[2021-04-17] MEDS: INSULIN (LEVEMIR) 100 UNITS/ML UNITS SQ SCH (21:58)
[2021-04-18] MEDS: INSULIN SLIDING SCALE (NOVOLOG) 1 VIAL SQ SCH ×2 (06:07→14:40)
[2021-04-18] MEDS ORDERED: PT OWN MED DRAWER 7, Y5N ONE (10:20)
[2021-04-18] MEDS: POLYETHYLENE GLYCOL (HEALTHYLAX) 3350 17 GM PACKET PO SCH (10:27)
[2021-04-18] MEDS: ACETAMINOPHEN WITH CODEINE 300MG/30MG TABLET PO PRN (10:27)
[2021-04-18] MEDS: APIXABAN 5 MG TABLET PO SCH (10:28)
[2021-04-18] MEDS: EZETIMIBE 10 MG TABLET (FP) PO SCH (10:28)
[2021-04-18] MEDS: DOCUSATE SODIUM 100 MG CAPSULE (FP) PO SCH (10:28)
[2021-04-18] MEDS: PANTOPRAZOLE 40 MG TABLET PO SCH (10:28)
[2021-04-18] MEDS: ASPIRIN 325 MG TABLET PO SCH (10:28)
[2021-04-18] MEDS: amLODIPine BESYLATE 10 MG TABLET (FP) PO SCH (10:28)
[2021-04-18] MEDS: LOSARTAN POTASSIUM 25 MG TABLET PO SCH (10:28)
[2021-04-18] MEDS ORDERED: traMADol HCL 50 MG TABLET PO PRN (12:26)
[2021-04-18 15:07] VITALS: BP 96/55; PULSE 63; TEMP 97.5
== END 2021-04-18 17:37 | DRG 253 ==
LOC: J2C 04:30 → JICU 14:56 → J8W 04-12 11:46
PROVIDERS: ADMIT Surgery Vascular Surgery; ATTEND Surgery Vascular Surgery
PROC: 041K4JL Bypass Right Femoral Artery to Popliteal Artery with Synthetic Substitute, Percutaneous Endoscopic Approach (ICD-10-PCS; principal; 2021-04-11 08:30)
DX: I73.9 Peripheral vascular disease, unspecified (principal); I69.351 Hemiplegia and hemiparesis following cerebral infarction affecting right dominant side; I87.8 Other specified disorders of veins; I10 Essential (primary) hypertension; E78.5 Hyperlipidemia, unspecified; E11.9 Type 2 diabetes mellitus without complications; E66.9 Obesity, unspecified; Z68.36 Body mass index [BMI] 36.0-36.9, adult; I11.9 Hypertensive heart disease without heart failure
CPT/HCPCS: 36415; 80053; 80061; 82962; 83036; 83735; 84100; 85025; 86850; 86900; 86901; 86922; 88304-TC; 94010; 94760; 97116-GP; 97162-GP; C9803; J0131; J1644; U0003; U0005

== ENCOUNTER 2022-05-07 13:00 | Inpatient (IN) | payer OTHER ==
[2022-05-07] MEDS ORDERED: ACETAMINOPHEN 1000 MG/100 ML BAG IVPB ONE (14:20)
[2022-05-07] MEDS ORDERED: ACETAMINOPHEN INJECTION 100 ML IVPB ONE (14:44)
[2022-05-07] MEDS ORDERED: CLINDAMYCIN IVPB 300 MG in DEXTROSE 5%-WATER - 48 ML IVPB ONE (15:21)
[2022-05-07 15:23] LABS: BASO % 1.3 % (0-2.0); EOS % 3.7 % (0-4.5); HEMATOCRIT 40.1 % (32.4-45.2); HEMOGLOBIN 13.5 GM/dL (10.7-15.3); LYMPH % 26.7 % (8-40); MCH 26.4 pg (25.7-33.7); MCHC 33.7 g/dl (32.0-36.0); MEAN CELL VOLUME 78.3 fl (80-96); MEAN PLT VOLUME 9.1 fl (7.5-11.1); MONO % 6.9 % (3.8-10.2); NEUT % 61.4 % (42.8-82.8); PLATELET COUNT 291 10^3/uL (134-434); RBC 5.12 M/mm3 (3.60-5.2); WHITE BLOOD COUNT 9.5 K/mm3 (4.0-10.0)
[2022-05-07 15:30] LABS: INR 1.74 (0.83-1.09); PROTHROMBIN TIME (PATIENT) 20.1 SEC (9.7-13.0)
[2022-05-07 15:32] LABS: ACTIVATED PTT 34.3 SECONDS (25.2-36.5)
[2022-05-07] MEDS ORDERED: CLINDAMYCIN 600MG PREMIX IVPB 600 MG/50 ML BAG IVPB ONE (15:33)
[2022-05-07] MEDS ORDERED: morphine CARPU-JECT 2 MG/1 ML DISP.SYRIN IVPUSH ONE ×2 (15:51→17:44)
[2022-05-07 15:54] LABS: ALBUMIN 3.9 g/dl (3.4-5.0); BLOOD UREA NITROGEN 19.5 mg/dL (7-18); CALCIUM 9.3 mg/dL (8.5-10.1)
[2022-05-07 15:57] LABS: CREATININE 1.1 mg/dL (0.55-1.3)
[2022-05-07 15:58] LABS: BILIRUBIN,TOTAL 0.8 mg/dL (0.2-1); TOT PROT 7.6 g/dl (6.4-8.2)
[2022-05-07] MEDS ORDERED: POTASSIUM CHLORIDE TABS 20 MEQ TABLET.ER (FP) PO ONE ×2 (16:18→17:49)
[2022-05-07] MEDS ORDERED: KCL 10 MEQ IVPB 10 MEQ/100 ML INFUS.BAG IVPB ONE (16:26)
[2022-05-07] MEDS: KCL 10 MEQ IVPB 10 MEQ/100 ML INFUS.BAG IVPB SCH ×3 (16:31→19:48)
[2022-05-07 16:56] LABS: MAGNESIUM 1.8 mg/dL (1.8-2.4)
[2022-05-07] MEDS ORDERED: HEPARIN NA (PORCINE) 5,000 UNITS/ML 1ML VIAL IVPUSH PRN ×2 (18:38)
[2022-05-07] MEDS ORDERED: HEPARIN NA (PORCINE) 5,000 UNITS/ML 1ML VIAL IVPUSH ONE (18:38)
[2022-05-07] MEDS ORDERED: EZETIMIBE 10 MG TABLET (FP) PO SCH (22:00)
[2022-05-07] MEDS: INSULIN SLIDING SCALE (NOVOLOG) 1 VIAL SQ SCH (22:06)
[2022-05-07] MEDS: GABAPENTIN 300 MG CAPSULE PO SCH (22:06)
[2022-05-07] MEDS: ROSUVASTATIN CA 20 MG TABLET PO SCH (22:06)
[2022-05-07] MEDS: HEPARIN INFUSION - 25,000 UNITS/500 ML INFUS.BAG IVPB SCH (22:43)
[2022-05-08 01:20] VITALS: BMI 37.7
[2022-05-08] MEDS: CLINDAMYCIN 600MG PREMIX IVPB 600 MG/50 ML BAG IVPB SCH ×2 (02:29→09:52)
[2022-05-08] MEDS: GABAPENTIN 300 MG CAPSULE PO SCH ×3 (06:26→22:16)
[2022-05-08] MEDS: INSULIN SLIDING SCALE (NOVOLOG) 1 VIAL SQ SCH ×4 (06:26→22:18)
[2022-05-08 09:38] LABS: HEMATOCRIT 39.1 % (32.4-45.2); HEMOGLOBIN 12.8 GM/dL (10.7-15.3); MCHC 32.8 g/dl (32.0-36.0); MEAN CELL VOLUME 79.1 fl (80-96); MEAN PLT VOLUME 9.8 fl (7.5-11.1); PLATELET COUNT 274 10^3/uL (134-434); RBC 4.95 M/mm3 (3.60-5.2); RDW 16.1 % (11.6-15.6); WHITE BLOOD COUNT 7.2 K/mm3 (4.0-10.0)
[2022-05-08] MEDS: amLODIPine BESYLATE 10 MG TABLET (FP) PO SCH (09:52)
[2022-05-08] MEDS: EZETIMIBE 10 MG TABLET (FP) PO SCH (09:52)
[2022-05-08] MEDS: LOSARTAN POTASSIUM 25 MG TABLET PO SCH (09:52)
[2022-05-08] MEDS: MULTIVITAMINS (DAILY MVI) TABLET (FP) PO SCH (09:52)
[2022-05-08 10:53] LABS: ALBUMIN 3.6 g/dl (3.4-5.0); BILIRUBIN,TOTAL 0.6 mg/dL (0.2-1); BLOOD UREA NITROGEN 22.5 mg/dL (7-18); CALCIUM 8.8 mg/dL (8.5-10.1); CREATININE 1.1 mg/dL (0.55-1.3); TOT PROT 7.3 g/dl (6.4-8.2)
[2022-05-08] MEDS: CHLORTHALIDONE 25 MG TABLET PO SCH (11:56)
[2022-05-08] MEDS: DOCUSATE SODIUM 100 MG CAPSULE (FP) PO SCH ×2 (13:08→22:16)
[2022-05-08] MEDS: CEFTRIAXONE 1 GM in DEXTROSE 5%-WATER - 50 ML IVPB SCH (16:52)
[2022-05-08] MEDS: HEPARIN INFUSION - 25,000 UNITS/500 ML INFUS.BAG IVPB SCH (19:45)
[2022-05-08] MEDS: ROSUVASTATIN CA 20 MG TABLET PO SCH (22:16)
[2022-05-08] MEDS: INSULIN (LEVEMIR) 100 UNITS/ML UNITS SQ SCH (22:16)
[2022-05-09] MEDS: GABAPENTIN 300 MG CAPSULE PO SCH ×3 (06:12→22:42)
[2022-05-09] MEDS: INSULIN SLIDING SCALE (NOVOLOG) 1 VIAL SQ SCH ×4 (06:12→22:51)
[2022-05-09 09:02] LABS: BASO % 1.2 % (0-2.0); EOS % 10.6 % (0-4.5); HEMATOCRIT 39.5 % (32.4-45.2); HEMOGLOBIN 12.9 GM/dL (10.7-15.3); LYMPH % 31.2 % (8-40); MCH 25.8 pg (25.7-33.7); MCHC 32.6 g/dl (32.0-36.0); MEAN CELL VOLUME 79.1 fl (80-96); MEAN PLT VOLUME 9.7 fl (7.5-11.1); MONO % 7.3 % (3.8-10.2); NEUT % 49.7 % (42.8-82.8); PLATELET COUNT 273 10^3/uL (134-434); WHITE BLOOD COUNT 6.6 K/mm3 (4.0-10.0)
[2022-05-09] MEDS: CHLORTHALIDONE 25 MG TABLET PO SCH (09:49)
[2022-05-09] MEDS: MULTIVITAMINS (DAILY MVI) TABLET (FP) PO SCH (09:49)
[2022-05-09] MEDS: DOCUSATE SODIUM 100 MG CAPSULE (FP) PO SCH ×2 (09:49→22:42)
[2022-05-09] MEDS: amLODIPine BESYLATE 10 MG TABLET (FP) PO SCH (09:49)
[2022-05-09] MEDS: EZETIMIBE 10 MG TABLET (FP) PO SCH (09:49)
[2022-05-09] MEDS: LOSARTAN POTASSIUM 25 MG TABLET PO SCH (09:49)
[2022-05-09 09:52] LABS: ALBUMIN 3.5 g/dl (3.4-5.0); BILIRUBIN,TOTAL 0.8 mg/dL (0.2-1); BLOOD UREA NITROGEN 20.9 mg/dL (7-18); CALCIUM 9.1 mg/dL (8.5-10.1); TOT PROT 7.4 g/dl (6.4-8.2)
[2022-05-09] MEDS ORDERED: HEPARIN NA (PORCINE) 5,000 UNITS/ML 1ML VIAL IVPUSH PRN (10:19)
[2022-05-09] MEDS: CEFTRIAXONE 1 GM in DEXTROSE 5%-WATER - 50 ML IVPB SCH (11:51)
[2022-05-09] MEDS: HEPARIN - 25,000 UNIT in SODIUM CHLORIDE 495 ML IV SCH (11:51)
[2022-05-09] MEDS ORDERED: INSULIN (NOVOLOG) ASPART 100 UNITS/ML 10ML VIAL ONE ×2 (14:11→17:18)
[2022-05-09] MEDS: HEPARIN NA (PORCINE) 5,000 UNITS/ML 1ML VIAL IVPUSH PRN ×2 (14:19→19:40)
[2022-05-09] MEDS: ROSUVASTATIN CA 20 MG TABLET PO SCH (22:42)
[2022-05-09] MEDS: INSULIN (LEVEMIR) 100 UNITS/ML UNITS SQ SCH (22:53)
[2022-05-10] MEDS: INSULIN SLIDING SCALE (NOVOLOG) 1 VIAL SQ SCH ×4 (06:38→22:55)
[2022-05-10] MEDS: GABAPENTIN 300 MG CAPSULE PO SCH ×3 (06:38→22:50)
[2022-05-10] MEDS: HEPARIN - 25,000 UNIT in SODIUM CHLORIDE 495 ML IV SCH ×2 (07:11→14:45)
[2022-05-10 09:23] LABS: HEMOGLOBIN 12.7 GM/dL (10.7-15.3); MCH 25.7 pg (25.7-33.7); MCHC 32.6 g/dl (32.0-36.0); MEAN CELL VOLUME 78.7 fl (80-96); MEAN PLT VOLUME 10.1 fl (7.5-11.1); PLATELET COUNT 307 10^3/uL (134-434); RBC 4.96 M/mm3 (3.60-5.2); RDW 16.3 % (11.6-15.6); WHITE BLOOD COUNT 7.5 K/mm3 (4.0-10.0)
[2022-05-10] MEDS: LOSARTAN POTASSIUM 25 MG TABLET PO SCH (10:10)
[2022-05-10] MEDS: DOCUSATE SODIUM 100 MG CAPSULE (FP) PO SCH ×2 (10:11→22:50)
[2022-05-10] MEDS: EZETIMIBE 10 MG TABLET (FP) PO SCH (10:12)
[2022-05-10] MEDS: MULTIVITAMINS (DAILY MVI) TABLET (FP) PO SCH (10:12)
[2022-05-10] MEDS: amLODIPine BESYLATE 10 MG TABLET (FP) PO SCH (10:12)
[2022-05-10] MEDS: CEFTRIAXONE 1 GM in DEXTROSE 5%-WATER - 50 ML IVPB SCH (10:18)
[2022-05-10] MEDS: CHLORTHALIDONE 25 MG TABLET PO SCH (10:34)
[2022-05-10] MEDS: FAMOTIDINE 20 MG TABLET PO SCH (14:45)
[2022-05-10] MEDS: ACETAMINOPHEN 325 MG TABLET (FP) PO PRN (19:09)
[2022-05-10] MEDS ORDERED: morphine SULFATE IMMEDIATE RELEASE 30 MG TAB PO ONE (20:15)
[2022-05-10] MEDS: ROSUVASTATIN CA 20 MG TABLET PO SCH (22:50)
[2022-05-10] MEDS: INSULIN (LEVEMIR) 100 UNITS/ML UNITS SQ SCH (22:51)
[2022-05-11] MEDS: INSULIN SLIDING SCALE (NOVOLOG) 1 VIAL SQ SCH ×4 (07:15→22:23)
[2022-05-11] MEDS: GABAPENTIN 300 MG CAPSULE PO SCH ×3 (07:16→22:14)
[2022-05-11] MEDS: HEPARIN - 25,000 UNIT in SODIUM CHLORIDE 495 ML IV SCH (08:30)
[2022-05-11] MEDS: EZETIMIBE 10 MG TABLET (FP) PO SCH (09:17)
[2022-05-11] MEDS: LOSARTAN POTASSIUM 25 MG TABLET PO SCH (09:17)
[2022-05-11] MEDS: amLODIPine BESYLATE 10 MG TABLET (FP) PO SCH (09:17)
[2022-05-11] MEDS: DOCUSATE SODIUM 100 MG CAPSULE (FP) PO SCH ×2 (09:17→22:13)
[2022-05-11] MEDS: MULTIVITAMINS (DAILY MVI) TABLET (FP) PO SCH (09:17)
[2022-05-11] MEDS: FAMOTIDINE 20 MG TABLET PO SCH (09:17)
[2022-05-11] MEDS: CEFTRIAXONE 1 GM in DEXTROSE 5%-WATER - 50 ML IVPB SCH (09:18)
[2022-05-11 09:45] LABS: HEMATOCRIT 40.2 % (32.4-45.2); HEMOGLOBIN 13.2 GM/dL (10.7-15.3); MCH 25.6 pg (25.7-33.7); MCHC 32.7 g/dl (32.0-36.0); MEAN CELL VOLUME 78.3 fl (80-96); MEAN PLT VOLUME 9.8 fl (7.5-11.1); PLATELET COUNT 306 10^3/uL (134-434); RBC 5.14 M/mm3 (3.60-5.2); WHITE BLOOD COUNT 7.5 K/mm3 (4.0-10.0)
[2022-05-11] MEDS: CHLORTHALIDONE 25 MG TABLET PO SCH (10:00)
[2022-05-11] MEDS: ACETAMINOPHEN 325 MG TABLET (FP) PO PRN ×2 (11:00→21:59)
[2022-05-11] MEDS: oxyCODONE HCL 5 MG TABLET PO PRN ×2 (11:39→21:59)
[2022-05-11] MEDS ORDERED: INSULIN (NOVOLOG) ASPART 100 UNITS/ML 10ML VIAL ONE (22:12)
[2022-05-11] MEDS: ROSUVASTATIN CA 20 MG TABLET PO SCH (22:13)
[2022-05-11] MEDS: INSULIN (LEVEMIR) 100 UNITS/ML UNITS SQ SCH (22:14)
[2022-05-12] MEDS: INSULIN SLIDING SCALE (NOVOLOG) 1 VIAL SQ SCH ×4 (07:37→21:07)
[2022-05-12] MEDS: GABAPENTIN 300 MG CAPSULE PO SCH ×3 (07:37→21:06)
[2022-05-12] MEDS: CEFTRIAXONE 1 GM in DEXTROSE 5%-WATER - 50 ML IVPB SCH (10:05)
[2022-05-12] MEDS: FAMOTIDINE 20 MG TABLET PO SCH (10:06)
[2022-05-12] MEDS: MULTIVITAMINS (DAILY MVI) TABLET (FP) PO SCH (10:06)
[2022-05-12] MEDS: amLODIPine BESYLATE 10 MG TABLET (FP) PO SCH (10:06)
[2022-05-12] MEDS: LOSARTAN POTASSIUM 25 MG TABLET PO SCH (10:06)
[2022-05-12] MEDS: EZETIMIBE 10 MG TABLET (FP) PO SCH (10:06)
[2022-05-12] MEDS: DOCUSATE SODIUM 100 MG CAPSULE (FP) PO SCH ×2 (10:06→21:05)
[2022-05-12] MEDS: CHLORTHALIDONE 25 MG TABLET PO SCH (10:07)
[2022-05-12 10:38] LABS: HEMOGLOBIN 13.3 GM/dL (10.7-15.3); MCH 26.2 pg (25.7-33.7); MCHC 33.2 g/dl (32.0-36.0); MEAN CELL VOLUME 78.9 fl (80-96); MEAN PLT VOLUME 9.7 fl (7.5-11.1); PLATELET COUNT 267 10^3/uL (134-434); RBC 5.07 M/mm3 (3.60-5.2); RDW 16.2 % (11.6-15.6)
[2022-05-12 11:10] LABS: INR 1.1 (0.83-1.09); PROTHROMBIN TIME (PATIENT) 12.7 SEC (9.7-13.0)
[2022-05-12] MEDS ORDERED: INSULIN (LEVEMIR) 100 UNITS/ML UNITS SQ SCH (11:37)
[2022-05-12] MEDS: oxyCODONE HCL 5 MG TABLET PO PRN ×2 (11:47→21:05)
[2022-05-12] MEDS: ROSUVASTATIN CA 20 MG TABLET PO SCH (21:09)
[2022-05-13] MEDS: GABAPENTIN 300 MG CAPSULE PO SCH ×3 (05:05→22:22)
[2022-05-13] MEDS: INSULIN SLIDING SCALE (NOVOLOG) 1 VIAL SQ SCH ×4 (06:23→22:22)
[2022-05-13 08:59] LABS: HEMATOCRIT 40.2 % (32.4-45.2); HEMOGLOBIN 12.9 GM/dL (10.7-15.3); MCH 25.5 pg (25.7-33.7); MCHC 32.1 g/dl (32.0-36.0); MEAN CELL VOLUME 79.4 fl (80-96); MEAN PLT VOLUME 9.7 fl (7.5-11.1); PLATELET COUNT 288 10^3/uL (134-434); RBC 5.06 M/mm3 (3.60-5.2); WHITE BLOOD COUNT 7.8 K/mm3 (4.0-10.0)
[2022-05-13] MEDS: MULTIVITAMINS (DAILY MVI) TABLET (FP) PO SCH (09:30)
[2022-05-13] MEDS: amLODIPine BESYLATE 10 MG TABLET (FP) PO SCH (09:30)
[2022-05-13] MEDS: CEFTRIAXONE 1 GM in DEXTROSE 5%-WATER - 50 ML IVPB SCH (09:30)
[2022-05-13] MEDS: CHLORTHALIDONE 25 MG TABLET PO SCH (09:30)
[2022-05-13] MEDS: FAMOTIDINE 20 MG TABLET PO SCH (09:30)
[2022-05-13] MEDS: DOCUSATE SODIUM 100 MG CAPSULE (FP) PO SCH ×2 (09:30→22:22)
[2022-05-13] MEDS: LOSARTAN POTASSIUM 25 MG TABLET PO SCH (09:30)
[2022-05-13] MEDS: EZETIMIBE 10 MG TABLET (FP) PO SCH (09:31)
[2022-05-13] MEDS ORDERED: PROPOFOL 20 ML ONE (10:20)
[2022-05-13] MEDS ORDERED: LACTATED RINGERS SOLUTION 1,000 ML IV SCH (10:45)
[2022-05-13] MEDS ORDERED: ONDANSETRON 4 MG/2 ML VIAL IVPUSH PRN ×2 (10:45→11:47)
[2022-05-13] MEDS ORDERED: LIDOCAINE HCL 1%, 10 MG/ML (20ML VIAL) INF ONE (11:00)
[2022-05-13] MEDS ORDERED: BUPIVACAINE HCL/PF 0.5% (5MG/ML) 10 ML VIAL IJ ONE (11:00)
[2022-05-13] MEDS ORDERED: GENTAMICIN SO4 80 MG/2 ML VIAL IVPB ONE (11:00)
[2022-05-13] MEDS ORDERED: MIDAZOLAM HCL 2 MG/2 ML SINGLE DOSE VIAL ONE (11:04)
[2022-05-13] MEDS: LACTATED RINGERS SOLUTION 1,000 ML IV SCH ×2 (12:45→13:04)
[2022-05-13] MEDS: oxyCODONE HCL 5 MG TABLET PO PRN (19:50)
[2022-05-13] MEDS: ACETAMINOPHEN 325 MG TABLET (FP) PO PRN (19:51)
[2022-05-13] MEDS ORDERED: INSULIN (LEVEMIR) 100 UNITS/ML UNITS SQ SCH (22:00)
[2022-05-13] MEDS: ROSUVASTATIN CA 20 MG TABLET PO SCH (22:22)
[2022-05-14] MEDS: oxyCODONE HCL 5 MG TABLET PO PRN ×3 (03:58→15:47)
[2022-05-14] MEDS: ACETAMINOPHEN 325 MG TABLET (FP) PO PRN ×2 (03:59→10:24)
[2022-05-14] MEDS: INSULIN SLIDING SCALE (NOVOLOG) 1 VIAL SQ SCH ×4 (06:42→22:22)
[2022-05-14] MEDS: GABAPENTIN 300 MG CAPSULE PO SCH ×3 (06:42→22:21)
[2022-05-14 10:00] LABS: BASO % 0.9 % (0-2.0); EOS % 3.8 % (0-4.5); HEMOGLOBIN 12.3 GM/dL (10.7-15.3); LYMPH % 35.3 % (8-40); MCH 25.6 pg (25.7-33.7); MCHC 32.5 g/dl (32.0-36.0); MEAN CELL VOLUME 78.8 fl (80-96); MEAN PLT VOLUME 9.6 fl (7.5-11.1); MONO % 8.5 % (3.8-10.2); NEUT % 51.5 % (42.8-82.8); PLATELET COUNT 274 10^3/uL (134-434); RBC 4.83 M/mm3 (3.60-5.2); RDW 15.9 % (11.6-15.6)
[2022-05-14 10:15] LABS: ALBUMIN 3.5 g/dl (3.4-5.0); BLOOD UREA NITROGEN 17.4 mg/dL (7-18); CALCIUM 9.6 mg/dL (8.5-10.1)
[2022-05-14 10:20] LABS: BILIRUBIN,TOTAL 0.5 mg/dL (0.2-1); TOT PROT 7.1 g/dl (6.4-8.2)
[2022-05-14] MEDS: amLODIPine BESYLATE 10 MG TABLET (FP) PO SCH (10:25)
[2022-05-14] MEDS: FAMOTIDINE 20 MG TABLET PO SCH (10:25)
[2022-05-14] MEDS: MULTIVITAMINS (DAILY MVI) TABLET (FP) PO SCH (10:25)
[2022-05-14] MEDS: EZETIMIBE 10 MG TABLET (FP) PO SCH (10:25)
[2022-05-14] MEDS: CEFTRIAXONE 1 GM in DEXTROSE 5%-WATER - 50 ML IVPB SCH (10:26)
[2022-05-14] MEDS: CHLORTHALIDONE 25 MG TABLET PO SCH (10:26)
[2022-05-14] MEDS: LOSARTAN POTASSIUM 25 MG TABLET PO SCH (10:26)
[2022-05-14] MEDS: DOCUSATE SODIUM 100 MG CAPSULE (FP) PO SCH ×2 (10:54→22:21)
[2022-05-14] MEDS: LACTATED RINGERS SOLUTION 1,000 ML IV SCH (11:46)
[2022-05-14] MEDS: ROSUVASTATIN CA 20 MG TABLET PO SCH (22:21)
[2022-05-14] MEDS: INSULIN (LEVEMIR) 100 UNITS/ML UNITS SQ SCH (22:22)
[2022-05-15] MEDS: GABAPENTIN 300 MG CAPSULE PO SCH ×3 (07:00→22:12)
[2022-05-15] MEDS: INSULIN SLIDING SCALE (NOVOLOG) 1 VIAL SQ SCH ×4 (07:00→22:11)
[2022-05-15] MEDS: oxyCODONE HCL 5 MG TABLET PO PRN ×3 (07:01→22:21)
[2022-05-15] MEDS: ACETAMINOPHEN 325 MG TABLET (FP) PO PRN (07:02)
[2022-05-15] MEDS: CHLORTHALIDONE 25 MG TABLET PO SCH (09:33)
[2022-05-15] MEDS: FAMOTIDINE 20 MG TABLET PO SCH (09:33)
[2022-05-15] MEDS: EZETIMIBE 10 MG TABLET (FP) PO SCH (09:33)
[2022-05-15] MEDS: amLODIPine BESYLATE 10 MG TABLET (FP) PO SCH (09:33)
[2022-05-15] MEDS: DOCUSATE SODIUM 100 MG CAPSULE (FP) PO SCH ×2 (09:33→22:11)
[2022-05-15] MEDS: LOSARTAN POTASSIUM 25 MG TABLET PO SCH (09:33)
[2022-05-15] MEDS: MULTIVITAMINS (DAILY MVI) TABLET (FP) PO SCH (09:33)
[2022-05-15] MEDS: CEFTRIAXONE 1 GM in DEXTROSE 5%-WATER - 50 ML IVPB SCH (09:34)
[2022-05-15 10:26] LABS: BASO % 0.7 % (0-2.0); EOS % 3.3 % (0-4.5); HEMATOCRIT 38.4 % (32.4-45.2); LYMPH % 22.4 % (8-40); MCH 26.7 pg (25.7-33.7); MCHC 33.8 g/dl (32.0-36.0); MEAN CELL VOLUME 79.1 fl (80-96); MEAN PLT VOLUME 9.6 fl (7.5-11.1); MONO % 7.1 % (3.8-10.2); NEUT % 66.5 % (42.8-82.8); PLATELET COUNT 268 10^3/uL (134-434); RBC 4.85 M/mm3 (3.60-5.2); RDW 15.8 % (11.6-15.6); WHITE BLOOD COUNT 8.3 K/mm3 (4.0-10.0)
[2022-05-15 10:48] LABS: BLOOD UREA NITROGEN 18.3 mg/dL (7-18)
[2022-05-15 10:49] LABS: ALBUMIN 3.6 g/dl (3.4-5.0); CALCIUM 9.5 mg/dL (8.5-10.1)
[2022-05-15 10:53] LABS: CREATININE 1.1 mg/dL (0.55-1.3)
[2022-05-15 10:55] LABS: BILIRUBIN,TOTAL 0.5 mg/dL (0.2-1); TOT PROT 7.8 g/dl (6.4-8.2)
[2022-05-15] MEDS: LACTATED RINGERS SOLUTION 1,000 ML IV SCH (11:45)
[2022-05-15] MEDS: INSULIN (LEVEMIR) 100 UNITS/ML UNITS SQ SCH (22:11)
[2022-05-15] MEDS: ROSUVASTATIN CA 20 MG TABLET PO SCH (22:12)
[2022-05-16] MEDS: GABAPENTIN 300 MG CAPSULE PO SCH ×3 (05:50→21:50)
[2022-05-16] MEDS: INSULIN SLIDING SCALE (NOVOLOG) 1 VIAL SQ SCH ×4 (06:01→21:52)
[2022-05-16] MEDS: MULTIVITAMINS (DAILY MVI) TABLET (FP) PO SCH (10:28)
[2022-05-16] MEDS: amLODIPine BESYLATE 10 MG TABLET (FP) PO SCH (10:28)
[2022-05-16] MEDS: LOSARTAN POTASSIUM 25 MG TABLET PO SCH (10:28)
[2022-05-16] MEDS: traMADol HCL 50 MG TABLET PO PRN (10:28)
[2022-05-16] MEDS: EZETIMIBE 10 MG TABLET (FP) PO SCH (10:28)
[2022-05-16] MEDS: DOCUSATE SODIUM 100 MG CAPSULE (FP) PO SCH ×2 (10:28→21:50)
[2022-05-16] MEDS: FAMOTIDINE 20 MG TABLET PO SCH (10:28)
[2022-05-16] MEDS: CEFTRIAXONE 1 GM in DEXTROSE 5%-WATER - 50 ML IVPB SCH (10:29)
[2022-05-16] MEDS: CHLORTHALIDONE 25 MG TABLET PO SCH (10:51)
[2022-05-16] MEDS: ROSUVASTATIN CA 20 MG TABLET PO SCH (21:50)
[2022-05-16] MEDS: INSULIN (LEVEMIR) 100 UNITS/ML UNITS SQ SCH (21:51)
[2022-05-17] MEDS: traMADol HCL 50 MG TABLET PO PRN ×3 (02:25→21:27)
[2022-05-17] MEDS: GABAPENTIN 300 MG CAPSULE PO SCH ×3 (06:34→21:29)
[2022-05-17] MEDS: INSULIN SLIDING SCALE (NOVOLOG) 1 VIAL SQ SCH ×4 (06:35→21:38)
[2022-05-17] MEDS: amLODIPine BESYLATE 10 MG TABLET (FP) PO SCH (11:54)
[2022-05-17] MEDS: CHLORTHALIDONE 25 MG TABLET PO SCH (11:54)
[2022-05-17] MEDS: MULTIVITAMINS (DAILY MVI) TABLET (FP) PO SCH (11:54)
[2022-05-17] MEDS: EZETIMIBE 10 MG TABLET (FP) PO SCH (11:54)
[2022-05-17] MEDS: LOSARTAN POTASSIUM 25 MG TABLET PO SCH (11:54)
[2022-05-17] MEDS: DOCUSATE SODIUM 100 MG CAPSULE (FP) PO SCH ×2 (11:54→21:27)
[2022-05-17] MEDS: CEFTRIAXONE 1 GM in DEXTROSE 5%-WATER - 50 ML IVPB SCH (11:55)
[2022-05-17] MEDS: FAMOTIDINE 20 MG TABLET PO SCH (11:56)
[2022-05-17 12:57] LABS: HEMATOCRIT 37.6 % (32.4-45.2); HEMOGLOBIN 12.6 GM/dL (10.7-15.3); MCH 26.4 pg (25.7-33.7); MCHC 33.5 g/dl (32.0-36.0); MEAN CELL VOLUME 78.9 fl (80-96); MEAN PLT VOLUME 9.2 fl (7.5-11.1); PLATELET COUNT 296 10^3/uL (134-434); RBC 4.76 M/mm3 (3.60-5.2); RDW 15.4 % (11.6-15.6); WHITE BLOOD COUNT 7.5 K/mm3 (4.0-10.0)
[2022-05-17] MEDS: oxyCODONE HCL 5 MG TABLET PO PRN (18:52)
[2022-05-17] MEDS: ROSUVASTATIN CA 20 MG TABLET PO SCH (21:28)
[2022-05-17] MEDS: APIXABAN 5 MG TABLET PO SCH (21:29)
[2022-05-17] MEDS: INSULIN (LEVEMIR) 100 UNITS/ML UNITS SQ SCH (21:38)
[2022-05-18] MEDS: GABAPENTIN 300 MG CAPSULE PO SCH ×3 (05:48→21:30)
[2022-05-18] MEDS: INSULIN SLIDING SCALE (NOVOLOG) 1 VIAL SQ SCH ×4 (06:45→21:43)
[2022-05-18] MEDS: FAMOTIDINE 20 MG TABLET PO SCH (09:08)
[2022-05-18] MEDS: CEFTRIAXONE 1 GM in DEXTROSE 5%-WATER - 50 ML IVPB SCH (09:08)
[2022-05-18] MEDS: amLODIPine BESYLATE 10 MG TABLET (FP) PO SCH (09:08)
[2022-05-18] MEDS: APIXABAN 5 MG TABLET PO SCH ×2 (09:08→21:31)
[2022-05-18] MEDS: MULTIVITAMINS (DAILY MVI) TABLET (FP) PO SCH (09:08)
[2022-05-18] MEDS: DOCUSATE SODIUM 100 MG CAPSULE (FP) PO SCH ×2 (09:08→21:31)
[2022-05-18] MEDS: CHLORTHALIDONE 25 MG TABLET PO SCH (09:08)
[2022-05-18] MEDS: LOSARTAN POTASSIUM 25 MG TABLET PO SCH (09:08)
[2022-05-18] MEDS: EZETIMIBE 10 MG TABLET (FP) PO SCH (09:08)
[2022-05-18] MEDS: traMADol HCL 50 MG TABLET PO PRN ×2 (09:27→21:30)
[2022-05-18] MEDS ORDERED: INSULIN (LEVEMIR) 100 UNITS/ML UNITS SQ SCH (09:51)
[2022-05-18] MEDS: oxyCODONE HCL 5 MG TABLET PO PRN (14:38)
[2022-05-18] MEDS: ROSUVASTATIN CA 20 MG TABLET PO SCH (21:31)
[2022-05-18] MEDS: INSULIN (LEVEMIR) 100 UNITS/ML UNITS SQ SCH (21:44)
[2022-05-19] MEDS: GABAPENTIN 300 MG CAPSULE PO SCH ×3 (05:34→22:34)
[2022-05-19] MEDS: INSULIN SLIDING SCALE (NOVOLOG) 1 VIAL SQ SCH ×4 (06:05→22:40)
[2022-05-19] MEDS: EZETIMIBE 10 MG TABLET (FP) PO SCH (10:25)
[2022-05-19] MEDS: DOCUSATE SODIUM 100 MG CAPSULE (FP) PO SCH ×2 (10:25→22:34)
[2022-05-19] MEDS: oxyCODONE HCL 5 MG TABLET PO PRN (10:25)
[2022-05-19] MEDS: CEFTRIAXONE 1 GM in DEXTROSE 5%-WATER - 50 ML IVPB SCH (10:26)
[2022-05-19] MEDS: FAMOTIDINE 20 MG TABLET PO SCH (10:26)
[2022-05-19] MEDS: MULTIVITAMINS (DAILY MVI) TABLET (FP) PO SCH (10:26)
[2022-05-19] MEDS: amLODIPine BESYLATE 10 MG TABLET (FP) PO SCH (10:26)
[2022-05-19] MEDS: LOSARTAN POTASSIUM 25 MG TABLET PO SCH (10:26)
[2022-05-19] MEDS: CHLORTHALIDONE 25 MG TABLET PO SCH (10:26)
[2022-05-19 10:40] LABS: EOS % 3.7 % (0-4.5); HEMATOCRIT 40.3 % (32.4-45.2); HEMOGLOBIN 13.4 GM/dL (10.7-15.3); LYMPH % 22.9 % (8-40); MCH 26.2 pg (25.7-33.7); MCHC 33.3 g/dl (32.0-36.0); MEAN CELL VOLUME 78.5 fl (80-96); MEAN PLT VOLUME 9.7 fl (7.5-11.1); MONO % 7.5 % (3.8-10.2); NEUT % 64.9 % (42.8-82.8); PLATELET COUNT 343 10^3/uL (134-434); RBC 5.13 M/mm3 (3.60-5.2); RDW 15.7 % (11.6-15.6); WHITE BLOOD COUNT 8.7 K/mm3 (4.0-10.0)
[2022-05-19 11:05] LABS: CALCIUM 9.7 mg/dL (8.5-10.1)
[2022-05-19 11:06] LABS: BLOOD UREA NITROGEN 21.3 mg/dL (7-18)
[2022-05-19 11:10] LABS: CREATININE 1.2 mg/dL (0.55-1.3)
[2022-05-19] MEDS: ROSUVASTATIN CA 20 MG TABLET PO SCH (22:34)
[2022-05-19] MEDS: INSULIN (LEVEMIR) 100 UNITS/ML UNITS SQ SCH (22:35)
[2022-05-20] MEDS: GABAPENTIN 300 MG CAPSULE PO SCH ×3 (06:25→21:49)
[2022-05-20] MEDS: INSULIN SLIDING SCALE (NOVOLOG) 1 VIAL SQ SCH ×4 (07:15→21:49)
[2022-05-20 10:16] LABS: BASO % 1.1 % (0-2.0); EOS % 3.1 % (0-4.5); HEMATOCRIT 39.8 % (32.4-45.2); LYMPH % 26.2 % (8-40); MCH 25.6 pg (25.7-33.7); MCHC 32.6 g/dl (32.0-36.0); MEAN CELL VOLUME 78.5 fl (80-96); MEAN PLT VOLUME 9.9 fl (7.5-11.1); MONO % 7.1 % (3.8-10.2); NEUT % 62.5 % (42.8-82.8); PLATELET COUNT 333 10^3/uL (134-434); RBC 5.06 M/mm3 (3.60-5.2); RDW 15.4 % (11.6-15.6); WHITE BLOOD COUNT 7.8 K/mm3 (4.0-10.0)
[2022-05-20] MEDS: DOCUSATE SODIUM 100 MG CAPSULE (FP) PO SCH ×2 (10:39→21:48)
[2022-05-20] MEDS: CHLORTHALIDONE 25 MG TABLET PO SCH (10:39)
[2022-05-20] MEDS: oxyCODONE HCL 5 MG TABLET PO PRN (10:39)
[2022-05-20] MEDS: amLODIPine BESYLATE 10 MG TABLET (FP) PO SCH (10:39)
[2022-05-20] MEDS: EZETIMIBE 10 MG TABLET (FP) PO SCH (10:39)
[2022-05-20] MEDS: FAMOTIDINE 20 MG TABLET PO SCH (10:39)
[2022-05-20] MEDS: LOSARTAN POTASSIUM 25 MG TABLET PO SCH (10:39)
[2022-05-20] MEDS: CEFTRIAXONE 1 GM in DEXTROSE 5%-WATER - 50 ML IVPB SCH (10:40)
[2022-05-20] MEDS: MULTIVITAMINS (DAILY MVI) TABLET (FP) PO SCH (10:40)
[2022-05-20 10:46] LABS: CALCIUM 10.1 mg/dL (8.5-10.1)
[2022-05-20 10:47] LABS: ALBUMIN 3.8 g/dl (3.4-5.0)
[2022-05-20 10:49] LABS: CREATININE 1.2 mg/dL (0.55-1.3)
[2022-05-20 10:50] LABS: BILIRUBIN,TOTAL 0.6 mg/dL (0.2-1); TOT PROT 7.8 g/dl (6.4-8.2)
[2022-05-20] MEDS ORDERED: INSULIN (LEVEMIR) 100 UNITS/ML UNITS SQ SCH (10:50)
[2022-05-20] MEDS ORDERED: MUPIROCIN 2% TOPICAL OINTMENT 22 GM TUBE TP SCH (11:15)
[2022-05-20] MEDS ORDERED: SUCCINYLCHOLINE CHLORIDE 200 MG/10 ML SYRINGE ONE (14:59)
[2022-05-20] MEDS ORDERED: PROPOFOL 20 ML ONE (14:59)
[2022-05-20] MEDS ORDERED: MIDAZOLAM HCL 2 MG/2 ML SINGLE DOSE VIAL ONE (14:59)
[2022-05-20] MEDS ORDERED: ceFAZolin SODIUM 1 GM VIAL IVPB ONE (15:15)
[2022-05-20] MEDS ORDERED: ceFAZolin SODIUM 1 GM VIAL ONE (15:15)
[2022-05-20] MEDS ORDERED: HEPARIN NA (PORCINE) 5,000 UNITS/ML 1ML VIAL SQ ONE (15:27)
[2022-05-20] MEDS ORDERED: IOHEXOL 180 MG/1 ML ML IJ ONE ×2 (15:28)
[2022-05-20] MEDS ORDERED: HEPARIN NA (PORCINE) 5,000 UNITS/ML 1ML VIAL ONE (15:57)
[2022-05-20] MEDS ORDERED: PROTAMINE SULFATE 50 MG/5 ML VIAL ONE (16:04)
[2022-05-20] MEDS ORDERED: LIDOCAINE HCL 1%, 10 MG/ML (20ML VIAL) NR ONE (16:05)
[2022-05-20] MEDS ORDERED: LACTATED RINGERS SOLUTION 1,000 ML IV SCH ×2 (16:15→16:42)
[2022-05-20] MEDS ORDERED: ACETAMINOPHEN 325 MG TABLET (FP) PO PRN (16:42)
[2022-05-20 19:35] VITALS: RESP 20
[2022-05-20] MEDS: traMADol HCL 50 MG TABLET PO PRN (20:20)
[2022-05-20] MEDS ORDERED: INSULIN (NOVOLOG) ASPART 100 UNITS/ML 10ML VIAL ONE (21:33)
[2022-05-20] MEDS: MUPIROCIN 2% TOPICAL OINTMENT 22 GM TUBE TP SCH (21:48)
[2022-05-20] MEDS: ROSUVASTATIN CA 20 MG TABLET PO SCH (21:48)
[2022-05-20] MEDS: INSULIN (LEVEMIR) 100 UNITS/ML UNITS SQ SCH (21:49)
[2022-05-21] MEDS: GABAPENTIN 300 MG CAPSULE PO SCH ×3 (06:09→21:36)
[2022-05-21] MEDS: INSULIN SLIDING SCALE (NOVOLOG) 1 VIAL SQ SCH ×4 (06:09→21:34)
[2022-05-21] MEDS: MULTIVITAMINS (DAILY MVI) TABLET (FP) PO SCH (09:40)
[2022-05-21] MEDS: CHLORTHALIDONE 25 MG TABLET PO SCH (09:40)
[2022-05-21] MEDS: FAMOTIDINE 20 MG TABLET PO SCH (09:40)
[2022-05-21] MEDS: amLODIPine BESYLATE 10 MG TABLET (FP) PO SCH (09:40)
[2022-05-21] MEDS: traMADol HCL 50 MG TABLET PO PRN (09:40)
[2022-05-21] MEDS: EZETIMIBE 10 MG TABLET (FP) PO SCH (09:42)
[2022-05-21] MEDS: DOCUSATE SODIUM 100 MG CAPSULE (FP) PO SCH ×2 (09:42→21:36)
[2022-05-21] MEDS: CEFTRIAXONE 1 GM in DEXTROSE 5%-WATER - 50 ML IVPB SCH (09:42)
[2022-05-21] MEDS: MUPIROCIN 2% TOPICAL OINTMENT 22 GM TUBE TP SCH ×2 (09:42→21:39)
[2022-05-21] MEDS: LOSARTAN POTASSIUM 25 MG TABLET PO SCH (09:42)
[2022-05-21 16:59] LABS: BLOOD UREA NITROGEN 16.4 mg/dL (7-18); CALCIUM 9.1 mg/dL (8.5-10.1)
[2022-05-21 17:02] LABS: CREATININE 1.1 mg/dL (0.55-1.3)
[2022-05-21] MEDS ORDERED: INSULIN (NOVOLOG) ASPART 100 UNITS/ML 10ML VIAL ONE (21:28)
[2022-05-21] MEDS: INSULIN (LEVEMIR) 100 UNITS/ML UNITS SQ SCH (21:35)
[2022-05-21] MEDS: oxyCODONE HCL 5 MG TABLET PO PRN (21:36)
[2022-05-21] MEDS: ROSUVASTATIN CA 20 MG TABLET PO SCH (21:38)
[2022-05-22] MEDS: INSULIN SLIDING SCALE (NOVOLOG) 1 VIAL SQ SCH ×2 (06:53→12:46)
[2022-05-22] MEDS: GABAPENTIN 300 MG CAPSULE PO SCH ×2 (06:53→13:08)
[2022-05-22] MEDS: MULTIVITAMINS (DAILY MVI) TABLET (FP) PO SCH (09:48)
[2022-05-22] MEDS: LOSARTAN POTASSIUM 25 MG TABLET PO SCH (09:48)
[2022-05-22] MEDS: CEFTRIAXONE 1 GM in DEXTROSE 5%-WATER - 50 ML IVPB SCH (09:49)
[2022-05-22] MEDS: amLODIPine BESYLATE 10 MG TABLET (FP) PO SCH (09:49)
[2022-05-22] MEDS: CHLORTHALIDONE 25 MG TABLET PO SCH (09:49)
[2022-05-22] MEDS: FAMOTIDINE 20 MG TABLET PO SCH (09:49)
[2022-05-22] MEDS: DOCUSATE SODIUM 100 MG CAPSULE (FP) PO SCH (09:49)
[2022-05-22] MEDS: EZETIMIBE 10 MG TABLET (FP) PO SCH (09:49)
[2022-05-22] MEDS: MUPIROCIN 2% TOPICAL OINTMENT 22 GM TUBE TP SCH (09:50)
[2022-05-22] MEDS: oxyCODONE HCL 5 MG TABLET PO PRN (12:43)
[2022-05-22 16:07] VITALS: BP 135/65; PULSE 78; TEMP 98
== END 2022-05-22 16:13 | disposition home or self-care (01) | DRG 603 ==
LOC: JER 13:00 → JERBED 15:18 → J8W 21:09
PROVIDERS: ADMIT Internal Medicine; ATTEND Internal Medicine
PROC: 0HDRXZZ Extraction of Toe Nail, External Approach (ICD-10-PCS; 2022-05-13 10:30)
PROC: B40DYZZ Plain Radiography of Aorta and Bilateral Lower Extremity Arteries using Other Contrast (ICD-10-PCS; principal; 2022-05-20 16:00)
DX: L03.116 Cellulitis of left lower limb (principal); I96 Gangrene, not elsewhere classified; E11.52 Type 2 diabetes mellitus with diabetic peripheral angiopathy with gangrene; I69.351 Hemiplegia and hemiparesis following cerebral infarction affecting right dominant side; I73.9 Peripheral vascular disease, unspecified; E66.9 Obesity, unspecified; Z68.37 Body mass index [BMI] 37.0-37.9, adult; E87.6 Hypokalemia; M20.5X2 Other deformities of toe(s) (acquired), left foot; L02.419 Cutaneous abscess of limb, unspecified; E11.8 Type 2 diabetes mellitus with unspecified complications; I70.212 Atherosclerosis of native arteries of extremities with intermittent claudication, left leg; E78.5 Hyperlipidemia, unspecified; Z79.2 Long term (current) use of antibiotics; Z95.828 Presence of other vascular implants and grafts; L60.8 Other nail disorders; I11.9 Hypertensive heart disease without heart failure
CPT/HCPCS: 36415; 71045-TC-FY; 73610-TC-LT-FY; 73630-TC-LT; 73718-TC-LT; 75635-TC; 76000-TC-FY; 80048; 80053; 82962; 83036; 83735; 84439; 84443; 84481; 85025; 85027; 85610; 85730; 86376; 86800; 87070; 87205; 88304-TC; 88305-TC; 93005; 93010; 93306-TC; 93926-TC; 94760; 99285-25; C9803-CS; G0463-25; J1644; Q9967; U0003; U0005

== ENCOUNTER 2022-07-30 08:55 | Inpatient (IN) | payer OTHER ==
[2022-07-30 09:10] VITALS: BMI 33.1
[2022-07-30 10:22] LABS: BASO % 1.2 % (0-2.0); EOS % 10.1 % (0-4.5); HEMATOCRIT 36.3 % (32.4-45.2); HEMOGLOBIN 11.9 GM/dL (10.7-15.3); LYMPH % 34.3 % (8-40); MCH 26.2 pg (25.7-33.7); MCHC 32.7 g/dl (32.0-36.0); MEAN CELL VOLUME 80.1 fl (80-96); MEAN PLT VOLUME 8.9 fl (7.5-11.1); MONO % 8.3 % (3.8-10.2); NEUT % 46.1 % (42.8-82.8); PLATELET COUNT 282 10^3/uL (134-434); RBC 4.53 M/mm3 (3.60-5.2); RDW 16.4 % (11.6-15.6); WHITE BLOOD COUNT 6.1 K/mm3 (4.0-10.0)
[2022-07-30 10:38] LABS: INR 1.01 (0.83-1.09); PROTHROMBIN TIME (PATIENT) 11.6 SEC (9.7-13.0)
[2022-07-30 11:02] LABS: CALCIUM 9.2 mg/dL (8.5-10.1)
[2022-07-30 11:03] LABS: ALBUMIN 3.5 g/dl (3.4-5.0); BLOOD UREA NITROGEN 15.7 mg/dL (7-18)
[2022-07-30 11:07] LABS: BILIRUBIN,TOTAL 0.6 mg/dL (0.2-1)
[2022-07-30 11:08] LABS: TOT PROT 7.1 g/dl (6.4-8.2)
[2022-07-30] MEDS ORDERED: HEPARIN NA (PORCINE) 5,000 UNITS/ML 1ML VIAL IVPUSH PRN (12:23)
[2022-07-30] MEDS ORDERED: HEPARIN SOD,PORK IN 0.45% NACL 25,000 UNITS/500 ML INFUS.BAG IVPB SCH (12:30)
[2022-07-30] MEDS ORDERED: HEPARIN NA (PORCINE) 5,000 UNITS/ML 1ML VIAL ONE (13:38)
[2022-07-30] MEDS ORDERED: CYCLOBENZAPRINE HCL 10 MG TABLET (FP) PO PRN (13:41)
[2022-07-30] MEDS ORDERED: PATIENT'S OWN MEDICATION (NON-FORMULARY) (Tizanidine Hcl 4 MG Tablet) PO PRN (13:41)
[2022-07-30] MEDS: HEPARIN NA (PORCINE) 5,000 UNITS/ML 1ML VIAL IVPUSH PRN (14:00)
[2022-07-30] MEDS ORDERED: LOSARTAN POTASSIUM 25 MG TABLET ONE (16:17)
[2022-07-30] MEDS ORDERED: GABAPENTIN 300 MG CAPSULE ONE ×3 (16:17→23:24)
[2022-07-30] MEDS ORDERED: AMOX TR/POT CLAV 875MG/125MG TABLETS (FP) ONE (16:20)
[2022-07-30] MEDS: GABAPENTIN 300 MG CAPSULE PO SCH ×2 (16:27→23:27)
[2022-07-30] MEDS: LOSARTAN POTASSIUM 25 MG TABLET PO SCH (16:27)
[2022-07-30] MEDS: AMOX TR/POT CLAV 875MG/125MG TABLETS (FP) PO SCH (16:33)
[2022-07-30] MEDS: EZETIMIBE 10 MG TABLET (FP) PO SCH (16:49)
[2022-07-30] MEDS ORDERED: traMADol HCL 50 MG TABLET ONE (21:16)
[2022-07-30] MEDS ORDERED: ATORVASTATIN CA 40 MG TABLET (FP) ONE (21:17)
[2022-07-30] MEDS: traMADol HCL 50 MG TABLET PO PRN (21:22)
[2022-07-30] MEDS: ATORVASTATIN CA 40 MG TABLET (FP) PO SCH (21:23)
[2022-07-30] MEDS: INSULIN (LEVEMIR) 100 UNITS/ML UNITS SQ SCH (21:23)
[2022-07-31] MEDS: HEPARIN NA (PORCINE) 5,000 UNITS/ML 1ML VIAL IVPUSH PRN (06:50)
[2022-07-31] MEDS: GABAPENTIN 300 MG CAPSULE PO SCH ×3 (06:50→21:53)
[2022-07-31] MEDS: INSULIN SLIDING SCALE (NOVOLOG) 1 VIAL SQ SCH ×3 (06:58→17:01)
[2022-07-31] MEDS: INSULIN (LEVEMIR) 100 UNITS/ML UNITS SQ SCH (06:59)
[2022-07-31] MEDS: AMOX TR/POT CLAV 875MG/125MG TABLETS (FP) PO SCH ×2 (08:03→17:01)
[2022-07-31] MEDS: amLODIPine BESYLATE 10 MG TABLET (FP) PO SCH (09:18)
[2022-07-31] MEDS: EZETIMIBE 10 MG TABLET (FP) PO SCH (09:18)
[2022-07-31] MEDS: LOSARTAN POTASSIUM 25 MG TABLET PO SCH (09:18)
[2022-07-31] MEDS: traMADol HCL 50 MG TABLET PO PRN (09:18)
[2022-07-31 11:12] LABS: INR 1.09 (0.83-1.09); PROTHROMBIN TIME (PATIENT) 12.5 SEC (9.7-13.0)
[2022-07-31] MEDS: CHLORTHALIDONE 25 MG TABLET PO SCH (11:46)
[2022-07-31] MEDS: ATORVASTATIN CA 40 MG TABLET (FP) PO SCH (21:53)
[2022-08-01] MEDS: GABAPENTIN 300 MG CAPSULE PO SCH ×3 (06:12→22:10)
[2022-08-01] MEDS: INSULIN SLIDING SCALE (NOVOLOG) 1 VIAL SQ SCH ×3 (06:17→17:53)
[2022-08-01] MEDS ORDERED: LIDOCAINE HCL 1%, 10 MG/ML (20ML VIAL) ONE (07:46)
[2022-08-01] MEDS ORDERED: DEXAMETHASONE SOD PHOSPHATE 10 MG/1 ML VIAL ONE (07:47)
[2022-08-01] MEDS ORDERED: BUPIVACAINE HCL/PF 0.5% (5MG/ML) 10 ML VIAL ONE (07:47)
[2022-08-01] MEDS: AMOX TR/POT CLAV 875MG/125MG TABLETS (FP) PO SCH ×2 (08:36→17:15)
[2022-08-01 10:46] LABS: HEMATOCRIT 35.4 % (32.4-45.2); HEMOGLOBIN 11.9 GM/dL (10.7-15.3); MCH 26.6 pg (25.7-33.7); MCHC 33.5 g/dl (32.0-36.0); MEAN CELL VOLUME 79.5 fl (80-96); PLATELET COUNT 299 10^3/uL (134-434); RBC 4.46 M/mm3 (3.60-5.2); RDW 16.2 % (11.6-15.6); WHITE BLOOD COUNT 5.9 K/mm3 (4.0-10.0)
[2022-08-01] MEDS: EZETIMIBE 10 MG TABLET (FP) PO SCH (11:30)
[2022-08-01] MEDS: amLODIPine BESYLATE 10 MG TABLET (FP) PO SCH (11:30)
[2022-08-01] MEDS: CHLORTHALIDONE 25 MG TABLET PO SCH (11:30)
[2022-08-01] MEDS: LOSARTAN POTASSIUM 25 MG TABLET PO SCH (11:30)
[2022-08-01] MEDS ORDERED: LIDOCAINE HCL 1%, 10 MG/ML (20ML VIAL) INF ONE (13:39)
[2022-08-01] MEDS ORDERED: BUPIVACAINE HCL/PF 0.5% (5 MG/ML) 30 ML VIAL IJ ONE (13:40)
[2022-08-01] MEDS: ATORVASTATIN CA 40 MG TABLET (FP) PO SCH (22:09)
[2022-08-01] MEDS: traMADol HCL 50 MG TABLET PO PRN (22:10)
[2022-08-01] MEDS: INSULIN (LEVEMIR) 100 UNITS/ML UNITS SQ SCH (22:15)
[2022-08-02] MEDS: INSULIN SLIDING SCALE (NOVOLOG) 1 VIAL SQ SCH ×3 (07:03→17:01)
[2022-08-02] MEDS: INSULIN (LEVEMIR) 100 UNITS/ML UNITS SQ SCH ×2 (07:03→21:41)
[2022-08-02] MEDS: GABAPENTIN 300 MG CAPSULE PO SCH ×3 (07:03→21:42)
[2022-08-02] MEDS: traMADol HCL 50 MG TABLET PO PRN (07:58)
[2022-08-02] MEDS: AMOX TR/POT CLAV 875MG/125MG TABLETS (FP) PO SCH ×2 (08:00→17:06)
[2022-08-02] MEDS: EZETIMIBE 10 MG TABLET (FP) PO SCH (10:10)
[2022-08-02] MEDS: amLODIPine BESYLATE 10 MG TABLET (FP) PO SCH (10:10)
[2022-08-02] MEDS: LOSARTAN POTASSIUM 25 MG TABLET PO SCH (10:10)
[2022-08-02] MEDS: CHLORTHALIDONE 25 MG TABLET PO SCH (10:11)
[2022-08-02 10:19] LABS: HEMATOCRIT 36.1 % (32.4-45.2); HEMOGLOBIN 12.1 GM/dL (10.7-15.3); MCH 26.7 pg (25.7-33.7); MCHC 33.5 g/dl (32.0-36.0); MEAN CELL VOLUME 79.5 fl (80-96); PLATELET COUNT 300 10^3/uL (134-434); RBC 4.54 M/mm3 (3.60-5.2); RDW 16.8 % (11.6-15.6); WHITE BLOOD COUNT 8.1 K/mm3 (4.0-10.0)
[2022-08-02] MEDS: oxyCODONE HCL 5 MG TABLET PO PRN ×2 (17:06→22:08)
[2022-08-02] MEDS ORDERED: CYCLOBENZAPRINE HCL 10 MG TABLET (FP) PO PRN (19:49)
[2022-08-02] MEDS: ATORVASTATIN CA 40 MG TABLET (FP) PO SCH (21:42)
[2022-08-03] MEDS: INSULIN (LEVEMIR) 100 UNITS/ML UNITS SQ SCH ×2 (06:24→21:54)
[2022-08-03] MEDS: GABAPENTIN 300 MG CAPSULE PO SCH ×3 (06:24→21:53)
[2022-08-03] MEDS: INSULIN SLIDING SCALE (NOVOLOG) 1 VIAL SQ SCH ×3 (06:25→16:49)
[2022-08-03] MEDS: AMOX TR/POT CLAV 875MG/125MG TABLETS (FP) PO SCH ×2 (07:48→16:50)
[2022-08-03] MEDS: oxyCODONE HCL 5 MG TABLET PO PRN ×3 (07:56→22:20)
[2022-08-03] MEDS: EZETIMIBE 10 MG TABLET (FP) PO SCH (09:47)
[2022-08-03] MEDS: LOSARTAN POTASSIUM 25 MG TABLET PO SCH (09:47)
[2022-08-03] MEDS: CHLORTHALIDONE 25 MG TABLET PO SCH (09:47)
[2022-08-03] MEDS: amLODIPine BESYLATE 10 MG TABLET (FP) PO SCH (09:47)
[2022-08-03 09:51] LABS: HEMATOCRIT 35.7 % (32.4-45.2); MCH 26.7 pg (25.7-33.7); MCHC 33.5 g/dl (32.0-36.0); MEAN CELL VOLUME 79.7 fl (80-96); MEAN PLT VOLUME 9.3 fl (7.5-11.1); PLATELET COUNT 312 10^3/uL (134-434); RBC 4.48 M/mm3 (3.60-5.2); RDW 16.3 % (11.6-15.6); WHITE BLOOD COUNT 7.5 K/mm3 (4.0-10.0)
[2022-08-03 12:07] VITALS: RESP 18
[2022-08-03] MEDS: ATORVASTATIN CA 40 MG TABLET (FP) PO SCH (21:53)
[2022-08-04] MEDS: GABAPENTIN 300 MG CAPSULE PO SCH ×2 (06:28→14:08)
[2022-08-04] MEDS: INSULIN (LEVEMIR) 100 UNITS/ML UNITS SQ SCH (06:29)
[2022-08-04] MEDS: INSULIN SLIDING SCALE (NOVOLOG) 1 VIAL SQ SCH ×3 (06:29→16:22)
[2022-08-04] MEDS: CHLORTHALIDONE 25 MG TABLET PO SCH (09:36)
[2022-08-04] MEDS: amLODIPine BESYLATE 10 MG TABLET (FP) PO SCH (09:36)
[2022-08-04] MEDS: AMOX TR/POT CLAV 875MG/125MG TABLETS (FP) PO SCH ×2 (09:36→17:11)
[2022-08-04] MEDS: LOSARTAN POTASSIUM 25 MG TABLET PO SCH (09:36)
[2022-08-04] MEDS: EZETIMIBE 10 MG TABLET (FP) PO SCH (09:36)
[2022-08-04 10:36] LABS: HEMATOCRIT 36.2 % (32.4-45.2); HEMOGLOBIN 12.2 GM/dL (10.7-15.3); MCH 27.1 pg (25.7-33.7); MCHC 33.6 g/dl (32.0-36.0); MEAN CELL VOLUME 80.5 fl (80-96); MEAN PLT VOLUME 9.6 fl (7.5-11.1); PLATELET COUNT 322 10^3/uL (134-434); RDW 16.6 % (11.6-15.6); WHITE BLOOD COUNT 6.7 K/mm3 (4.0-10.0)
[2022-08-04 14:40] VITALS: BP 139/73; PULSE 74; TEMP 98.2
[2022-08-04] MEDS: oxyCODONE HCL 5 MG TABLET PO PRN (17:14)
== END 2022-08-04 18:56 | disposition home or self-care (01) | DRG 256 ==
LOC: SUPCPDRO 08:55 → JER 08:55 → JERBED 12:25 → J6S 07-31 06:44
PROVIDERS: ADMIT Internal Medicine; ATTEND Internal Medicine
PROC: 0Y6Q0Z3 Detachment at Left 1st Toe, Low, Open Approach (ICD-10-PCS; principal; 2022-08-02)
DX: E11.52 Type 2 diabetes mellitus with diabetic peripheral angiopathy with gangrene (principal); I69.351 Hemiplegia and hemiparesis following cerebral infarction affecting right dominant side; I96 Gangrene, not elsewhere classified; M86.172 Other acute osteomyelitis, left ankle and foot; M86.672 Other chronic osteomyelitis, left ankle and foot; E11.621 Type 2 diabetes mellitus with foot ulcer; L97.509 Non-pressure chronic ulcer of other part of unspecified foot with unspecified severity; E78.5 Hyperlipidemia, unspecified; I11.9 Hypertensive heart disease without heart failure; E11.69 Type 2 diabetes mellitus with other specified complication
CPT/HCPCS: 36415; 71046-TC-FY; 73630-TC-LT; 73718-TC-LT; 80053; 82962; 85025; 85027; 85610; 85730; 86850; 86900; 86901; 88305-TC; 88311-TC; 93005; 93010; 99285-25; C9803-CS; J1100; J1644; U0003; U0005